=== PATIENT | female | born 1990 | race Caucasian/White ===

== ENCOUNTER 2019-02-20 09:10 | Outpatient (CLI) | payer OTHER, MEDICAID ==
--- NOTE | 2019-02-20 22:19 | Ultrasound Report ---
Reason: TEST POSITIVE Procedure Date: 02/20/2019 Accession Number: [id number] / [id number] Procedure: US - OB First Trimester CPT Code: FULL RESULT: EXAM: FIRST TRIMESTER OBSTETRIC ULTRASOUND (Less than 11 weeks) EXAM DATE: 02/20/2019 09:56 AM. CLINICAL HISTORY: TEST POSITIVE. LMP: Unknown. COMPARISONS: None. TECHNIQUE: Transabdominal and transvaginal ultrasound examination with static image documentation. ASSESSMENT: Gestational Sac: Single intrauterine. Embryo: CRL (crown-rump length) 15.7 mm = 8 weeks 0 days. Cardiac activity: 157 beats per minute. Yolk sac: 3 mm. Amniotic fluid: Not accurately assessed at this gestational age. Early placenta: Not visible at this gestational age. Other: No perigestational fluid collection demonstrated. MATERNAL STRUCTURES: Uterus: Anteverted. Unremarkable. Cervix: Closed. Bilateral ovaries unremarkable aside from a 2.2 cm right ovarian corpus luteal cyst. Free Fluid: None. Other: None. IMPRESSION: 1. Single viable intrauterine at EGA 8 weeks 0 days with JAVIER 10/02/2019 based on crown-rump length. RADIA
== END 2019-02-20 09:11 | disposition home or self-care (01) ==
LOC: DI 09:10
PROVIDERS: ATTEND Obstetrics & Gynecology
DX: Z32.01 Encounter for pregnancy test, result positive (principal)
CPT/HCPCS: 76801

== ENCOUNTER 2019-03-19 11:20 | Outpatient (CLI) | payer OTHER, MEDICAID ==
[2019-03-19 15:27] LABS: MUDS CUTOFF CONCENTRATIONS CUTOFF CONC BELOW:
[2019-03-19 15:42] LABS: BILIRUBIN,URINE NEGATIVE (NEGATIVE); GLUCOSE, URINE (UA) NEGATIVE (NEGATIVE); KETONES,URINE (UA) NEGATIVE (NEGATIVE); LEUKOCYTE ESTERASE, URINE NEGATIVE (NEGATIVE); NITRITE,URINE NEGATIVE (NEGATIVE); OCCULT BLOOD,URINE NEGATIVE (NEGATIVE); PROTEIN,URINE NEGATIVE (NEGATIVE); UROBILINOGEN,URINE 0.2 (NORMAL) E.U./dL (NORMAL)
[2019-03-19 15:43] LABS: CLARITY,URINE HAZY (CLEAR)
[2019-03-19 15:49] LABS: AMPHETAMINE SCREEN,URINE NEGATIVE (NEGATIVE); BENZODIAZEPINES SCREEN, URINE NEGATIVE (NEGATIVE); COCAINE SCREEN URINE NEGATIVE (NEGATIVE); METHADONE SCREEN, URINE NEGATIVE (NEGATIVE); METHAMPHETAMINES SCREEN, URINE NEGATIVE (NEGATIVE); OPIATE SCREEN, URINE NEGATIVE (NEGATIVE); OXYCODONE SCREEN, URINE NEGATIVE (NEGATIVE); PROPOXYPHENE SCREEN, URINE NEGATIVE (NEGATIVE); TRICYCLIC ANTIDEPRESSANT,URINE NEGATIVE (NEGATIVE)
[2019-03-19 15:55] LABS: AMORPHOUS SEDIMENT,UR Moderate /LPF; BACTERIA,URINE None Seen /HPF (None Seen); RBC,URINE None Seen /HPF (0-5); SQUAMOUS EPITHELIAL CELL,UR NONE SEEN (<= Few)
[2019-03-19 20:06] LABS: TRICHOMONAS VAGINALIS DNA NEGATIVE (NEGATIVE)
== END 2019-03-19 23:59 | disposition home or self-care (01) ==
LOC: LAB.R 11:20
PROVIDERS: ATTEND Nurse Practitioner Obstetrics & Gynecology
DX: Z36.89 Encounter for other specified antenatal screening (principal)
CPT/HCPCS: 80306; 81001; 87086; 87491; 87591; 87661

== ENCOUNTER 2019-03-19 11:31 | Outpatient (CLI) | payer OTHER, MEDICAID ==
[2019-03-19 12:11] LABS: BASOPHILS % (AUTO) 0.4 %; EOSINOPHILS # (AUTO) 0.1 10^3/uL (0.0-0.7); EOSINOPHILS % (AUTO) 1.5 %; HGB - HEMOGLOBIN 12.2 g/dL (12.0-16.0); LYMPHOCYTES # (AUTO) 1.2 10^3/uL (1.5-3.5); LYMPHOCYTES % (AUTO) 22.3 %; MEAN CORPUSCULAR HEMOGLOBIN 29.4 pg (27.0-31.0); MEAN CORPUSCULAR HGB CONC 32.3 g/dL (32.0-36.0); MEAN CORPUSCULAR VOLUME 91.1 fL (81.0-99.0); MEAN PLATELET VOLUME 9.5 fL (7.9-10.8); MONOCYTES # (AUTO) 0.4 10^3/uL (0.0-1.0); MONOCYTES % (AUTO) 7.3 %; NEUTROPHILS # (AUTO) 3.7 10^3/uL (1.5-6.6); PLT - PLATELET COUNT 238 10^3/uL (130-450); RED BLOOD COUNT 4.15 10^6/uL (4.20-5.40); RED CELL DISTRIBUTION WIDTH 12.7 % (12.0-15.0); WHITE BLOOD COUNT 5.5 x10^3/uL (4.8-10.8)
[2019-03-20 11:36] LABS: HEPATITIS B SURFACE ANTIGEN NON-REACTIVE (NON-REACTIVE)
[2019-03-20 11:37] LABS: HEPATITIS C ANTIBODY NON-REACTIVE (NON-REACTIVE)
[2019-03-22 17:21] LABS: HIV AG/AB 4TH GEN NON-REACTIVE (NON-REACTIVE)
== END 2019-03-19 11:32 | disposition home or self-care (01) ==
LOC: LAB 11:31
PROVIDERS: ATTEND Nurse Practitioner Obstetrics & Gynecology
DX: Z36.89 Encounter for other specified antenatal screening (principal)
CPT/HCPCS: 36415; 80306; 81001; 81599; 85025; 86592; 86762; 86803; 86850; 86900; 86901; 87086; 87340; 87389; 87491; 87591; 87661

== ENCOUNTER 2019-05-24 06:50 | Outpatient (CLI) | payer OTHER, MEDICAID ==
--- NOTE | 2019-05-24 15:33 | Ultrasound Report ---
Reason: ENCOUNTER FOR OTHER SPECIFIED SCREENING Procedure Date: 05/24/2019 Accession Number: [id number] / [id number] Procedure: US - OB Detailed Eval CPT Code: FULL RESULT: EXAM: COMPLETE OBSTETRICAL ULTRASOUND EXAM DATE: 05/24/2019 09:16 AM. CLINICAL HISTORY: anatomic survey. COMPARISON: First trimester ultrasound 02/20/2019. TECHNIQUE: Real-time sonographic evaluation of the fetus performed by the blow machine tender starch spraying. Multiple installation service representative static images were saved for review. DATING: Established EGA 21 weeks 2 days with JAVIER 10/02/2019 based on working due date. EGA 21 weeks 0 days with JAVIER 10/04/2019 based on the current ultrasound. GENERAL EVALUATION Carlos . Cardiac activity: 136 bpm. movement: Visualized. Presentation: Cephalic. Placenta: Posterior position. No evidence for previa. Umbilical cord: 3 vessel cord. Central placental cord origin. Amniotic fluid: Subjectively normal. MVP 5.7 cm and JESSIE 16.0 cm. BIOMETRY Bi-Parietal Diameter (BPD): 4.9 cm, 20 weeks 5 days Head Circumference (HC): 18.5 cm, 20 weeks 6 days Abdominal Circumference (AC): 16.4 cm, 21 weeks 3 days Femur Length (FL): 3.6 cm, 21 weeks 4 days Estimated Weight: 423 g, 52nd percentile for 21 weeks 2 days. ANATOMY The intracranial structures, profile, face/nose/lips, spine, 4 chamber heart and outflow tracts, stomach, abdominal wall and cord insertion, diaphragm, bladder, and extremities were visualized and demonstrate no abnormality. Both kidneys demonstrate prominent renal pelvises measuring up to 0.5 cm each, pyelectasis. MATERNAL STRUCTURES Uterus: Unremarkable. Cervix: Long and closed. Transabdominal length 4.0 cm. Right ovary/adnexa: Unremarkable. Left ovary/adnexa: Unremarkable. Free fluid: None. IMPRESSION: 1. Carlos live intrauterine with gestational age 21 weeks 2 days based on working due date. 2. Estimated weight is within expected limits for assigned dating. 3. Mild bilateral renal pyelectasis. The remaining anatomy survey is normal. Therefore, one soft marker for aneuploidy is detected. Recommend correlation with maternal age, ethnicity, and aneuploidy risk assessment results such as serum screening or cell free DNA testing to help guide further management. RADIA
== END 2019-05-24 06:51 | disposition home or self-care (01) ==
LOC: DI 06:50
PROVIDERS: ATTEND Nurse Practitioner Obstetrics & Gynecology
DX: Z36.89 Encounter for other specified antenatal screening (principal)
CPT/HCPCS: 76811

== ENCOUNTER 2019-07-02 08:34 | Outpatient (CLI) | payer OTHER, MEDICAID ==
--- NOTE | 2019-07-02 10:49 | Ultrasound Report ---
Reason: F/U TO FAS Procedure Date: 07/02/2019 Accession Number: [id number] / [id number] Procedure: US - OB F/U or Repeat CPT Code: FULL RESULT: EXAM: FOLLOW-UP OBSTETRICAL ULTRASOUND EXAM DATE: 07/02/2019 09:38 AM. CLINICAL HISTORY: Follow-up anatomy evaluation. COMPARISON: Obstetrical ultrasound 05/24/2019. TECHNIQUE: Real-time sonographic evaluation of the fetus performed by the executive sales assistant. Additional transvaginal imaging to more accurately evaluate cervical length/placental position/etc. Multiple insurance service representative static images were saved for review. DATING: Established EGA 26 weeks 6 days with JAVIER 10/02/2019 based on prior ultrasound. EGA 26 weeks 6 days with JAVIER 10/02/2019 based on physician provided. EGA 27 weeks 1 day with JAVIER 09/30/2019 based on the current ultrasound. GENERAL EVALUATION Carlos . Cardiac activity: 132 bpm. movement: Visualized. Presentation: Cephalic. Placenta: Posterior position. Amniotic fluid: Normal. JESSIE 21.0 cm. MVP 5.7 cm. BIOMETRY Bi-Parietal Diameter (BPD): 6.69 cm, 27 weeks 0 days Head Circumference (HC): 24.6 cm, 26 weeks 5 days Abdominal Circumference (AC): 22.6 cm, 27 weeks 0 days 5.24 Femur Length (FL): 5.24 cm, 27 weeks 6 days. Estimated Weight: 1055 g, 56.4 percentile for 26 weeks 4 days. ANATOMY Limited anatomic evaluation restricted to kidneys. There is mental change in the minimal bilateral pelviectasis. The right and left renal pelvic transverse diameter are both 5 mm which are unchanged. MATERNAL STRUCTURES Cervical length 4.7 cm. IMPRESSION: 1. Carlos live intrauterine with gestational age 27 weeks 1 day based on current ultrasound. 2. Estimated weight is within expected limits for assigned dating. 3. Normal interval growth compared to date of prior biometry. 4. There has been no change in the minimal bilateral renal pelvic dilatation of the kidneys compared to prior examination. Consider third trimester follow-up. RADIA
== END 2019-07-02 08:35 | disposition home or self-care (01) ==
LOC: DI 08:34
PROVIDERS: ATTEND Nurse Practitioner Obstetrics & Gynecology
DX: Z34.90 Encounter for supervision of normal pregnancy, unspecified, unspecified trimester (principal)
CPT/HCPCS: 76816

== ENCOUNTER 2019-07-04 08:09 | Emergency (ER) | payer OTHER, MEDICAID ==
[2019-07-04 08:17] VITALS: BP 122/71
[2019-07-04] MEDS ORDERED: ACETAMINOPHEN 325 MG TABLET PO STA (08:23)
--- NOTE | 2019-07-04 08:27 | ED Physician Documentation ---
History of Present Illness - Stated complaint Stated Complaint: BACK PX - Chief complaint Chief Complaint: Back Pain - History obtained from History obtained from: Patient - History of Present Illness Timing: Today Pain level max: 4 Pain level now: 3 - Additonal information Additional information: 29-year-old female, approximately 28 weeks . She states that she helped somewhat up off the ground yesterday at work. States that she felt her back gradually worsened and tightened throughout the day. Worse today. Has not taken anything. Worse with movement. She is also having lower pelvic pain and cramping. No vaginal bleeding. No discharge. Better with rest. Review of Systems Constitutional: denies: Fever, Chills Throat: denies: Sore throat Cardiac: denies: Chest pain / pressure Respiratory: denies: Cough GI: denies: Vomiting, Diarrhea : reports: Now EGA. denies: Dysuria, Frequency, Hesitancy, Incontinent, Hematuria Skin: denies: Rash Musculoskeletal: denies: Neck pain Neurologic: denies: Headache PD PAST MEDICAL HISTORY - Past Medical History Cardiovascular: None Respiratory: Asthma, Pneumonia Endocrine/Autoimmune: None GI: None RAC SPECIALIST: None : None HEENT: None Psych: None Musculoskeletal: None Derm: None - Past Surgical History Past Surgical History: No - Present Medications Home Medications: Ambulatory Orders Medication Instructions Recorded Confirmed Albuterol Sulfate [Albuterol 2 puffs IH Q4HR PRN #1 hfa.aer.ad 03/22/15 03/18/16 Sulfate Hfa] Nebulizer and Compressor [Comp-Air 1 each MC Q4HR PRN #1 each 03/22/15 03/18/16 Elite Comp Nebulizer] Ondansetron Odt [Zofran] 4 mg TL Q6H PRN #10 tablet 03/18/16 - Allergies Allergies/Adverse Reactions: Allergies Allergy/AdvReac Type Severity Reaction Status Date / Time No Known Drug Allergies Allergy Verified 07/04/19 08:17 - Social History Does the pt smoke?: No Smoking Status: Former smoker Does the pt drink ETOH?: Yes Does the pt have substance abuse?: No - Immunizations Immunizations are current?: Yes - POLST Patient has POLST: No PD ED PE NORMAL - Vitals Vital signs reviewed: Yes - General General: Alert and oriented X 3, No acute distress, Well developed/nourished - HEENT HEENT: PERRL, Moist mucous membranes - Neck Neck: Supple, no meningeal sign - Cardiac Cardiac: RRR, Strong equal pulses - Respiratory Respiratory: No respiratory distress, Clear bilaterally - Abdomen Abdomen: Soft, Non tender, Non distended - Female Female : Pt declined - Back Back: No spinal TTP, Other (No midline tender to palpation. Paraspinal spasm mild low lumbar.) - Derm Derm: Warm and dry - Extremities Extremities: No edema, No calf tenderness / cord - Neuro Neuro: Alert and oriented X 3 - Psych Psych: Normal mood, Normal affect Results - Vitals Vitals: Vital Signs - 24 hr 07/04/19 08:15 Temperature 98.6 C H Heart Rate 66 Respiratory 22 Rate Blood Pressure 122/71 O2 Saturation 98 Oxygen O2 Source Room air - Labs Labs: Laboratory Tests 07/04/19 08:36 Urine Color YELLOW Urine Clarity CLEAR Urine pH 6.5 Ur Specific [place] 1.010 Urine Protein NEGATIVE Urine Glucose (UA) NEGATIVE Urine Ketones NEGATIVE Urine Occult Blood NEGATIVE Urine Nitrite NEGATIVE Urine Bilirubin NEGATIVE Urine Urobilinogen 0.2 (NORMAL) Ur Leukocyte Esterase NEGATIVE Ur Microscopic Review NOT INDICATED Urine Culture Comments NOT INDICATED PD MEDICAL DECISION MAKING - ED course Complexity details: reviewed results, re-evaluated patient, considered differential, d/w patient ED course: OB nurses were called at 05 21 to come and perform monitoring and labor check. Tylenol given for pain. Urinalysis ordered. OB came and evaluated the patient. Normal nonstress test per OB. No evidence of contractions or labor. Normal heart rate. Feels better after Tylenol. Appears to be low back strain. Negative urinalysis. Patient counseled regarding signs and symptoms for which I believe and urgent re-evaluation would be necessary. Patient with good understanding of and agreement to plan and is comfortable going home at this time This document was made in part using voice recognition software. While efforts are made to proofread this document, sound alike and grammatical errors may occur. Departure - Departure Disposition: 01 Home, Self Care Clinical Impression: Low back strain Qualifiers: Encounter type: initial encounter Qualified Code(s): S39.012A - Strain of muscle, fascia and tendon of lower back, initial encounter Condition: Good Instructions: ED Low Back Pain Injury Follow-Up: your,doctor in 3 days [Other] Comments: you can use tylenol for pain. Return if you worsen. Discharge Date/Time: 07/04/19 09:08
[2019-07-04 08:41] LABS: BILIRUBIN,URINE NEGATIVE (NEGATIVE); GLUCOSE, URINE (UA) NEGATIVE (NEGATIVE); KETONES,URINE (UA) NEGATIVE (NEGATIVE); LEUKOCYTE ESTERASE, URINE NEGATIVE (NEGATIVE); NITRITE,URINE NEGATIVE (NEGATIVE); OCCULT BLOOD,URINE NEGATIVE (NEGATIVE); PH,URINE 6.5 PH (5.0-7.5); PROTEIN,URINE NEGATIVE (NEGATIVE); UROBILINOGEN,URINE 0.2 (NORMAL) E.U./dL (NORMAL)
[2019-07-04 08:42] LABS: CLARITY,URINE CLEAR (CLEAR)
== END 2019-07-04 09:08 | disposition home or self-care (01) ==
LOC: ED 08:09
DX: O99.89 Other specified diseases and conditions complicating pregnancy, childbirth and the puerperium (principal); S39.012A Strain of muscle, fascia and tendon of lower back, initial encounter; X58.XXXA Exposure to other specified factors, initial encounter; Z87.891 Personal history of nicotine dependence; Z3A.28 28 weeks gestation of pregnancy
CPT/HCPCS: 81003; 99283; 99284; A9270; 81001; 87086

== ENCOUNTER 2019-07-16 10:11 | Outpatient (CLI) | payer OTHER, MEDICAID ==
[2019-07-16 11:24] LABS: HGB - HEMOGLOBIN 11.2 g/dL (12.0-16.0); MEAN CORPUSCULAR HEMOGLOBIN 30.1 pg (27.0-31.0); MEAN CORPUSCULAR HGB CONC 32.7 g/dL (32.0-36.0); MEAN CORPUSCULAR VOLUME 92.2 fL (81.0-99.0); MEAN PLATELET VOLUME 8.6 fL (7.9-10.8); RED BLOOD COUNT 3.72 10^6/uL (4.20-5.40); RED CELL DISTRIBUTION WIDTH 12.8 % (12.0-15.0); WHITE BLOOD COUNT 6.9 x10^3/uL (4.8-10.8)
== END 2019-07-16 10:12 | disposition home or self-care (01) ==
LOC: LAB 10:11
PROVIDERS: ATTEND Obstetrics & Gynecology
DX: Z34.90 Encounter for supervision of normal pregnancy, unspecified, unspecified trimester (principal)
CPT/HCPCS: 36415; 82950; 85027; 86850

== ENCOUNTER 2019-08-06 10:46 | Outpatient (CLI) | payer OTHER, MEDICAID ==
[2019-08-06 11:07] LABS: HGB - HEMOGLOBIN 10.7 g/dL (12.0-16.0); MEAN CORPUSCULAR HEMOGLOBIN 29.4 pg (27.0-31.0); MEAN CORPUSCULAR HGB CONC 32.9 g/dL (32.0-36.0); MEAN CORPUSCULAR VOLUME 89.3 fL (81.0-99.0); MEAN PLATELET VOLUME 8.9 fL (7.9-10.8); RED BLOOD COUNT 3.64 10^6/uL (4.20-5.40); RED CELL DISTRIBUTION WIDTH 12.6 % (12.0-15.0)
== END 2019-08-06 10:47 | disposition home or self-care (01) ==
LOC: LAB 10:46
PROVIDERS: ATTEND Nurse Practitioner Obstetrics & Gynecology
DX: O99.019 Anemia complicating pregnancy, unspecified trimester (principal); Z3A.00 Weeks of gestation of pregnancy not specified
CPT/HCPCS: 36415; 85027

== ENCOUNTER 2019-08-27 12:08 | Outpatient (CLI) | payer OTHER, MEDICAID ==
[2019-08-27 12:21] LABS: HGB - HEMOGLOBIN 11.2 g/dL (12.0-16.0); MEAN CORPUSCULAR HEMOGLOBIN 28.9 pg (27.0-31.0); MEAN CORPUSCULAR HGB CONC 32.3 g/dL (32.0-36.0); MEAN CORPUSCULAR VOLUME 89.7 fL (81.0-99.0); MEAN PLATELET VOLUME 8.9 fL (7.9-10.8); RED BLOOD COUNT 3.87 10^6/uL (4.20-5.40); RED CELL DISTRIBUTION WIDTH 13.8 % (12.0-15.0)
[2019-08-27 12:44] LABS: % IRON SATURATION 12 % (20-50); IRON 74 ug/dL (28-170); TOTAL IRON BINDING CAPACITY 638 ug/dL (250-450); TRANSFERRIN 456 mg/dL (192-382)
== END 2019-08-27 12:09 | disposition home or self-care (01) ==
LOC: LAB 12:08
PROVIDERS: ATTEND Obstetrics & Gynecology
DX: O99.019 Anemia complicating pregnancy, unspecified trimester (principal); Z3A.00 Weeks of gestation of pregnancy not specified
CPT/HCPCS: 36415; 83540; 84466; 85027

== ENCOUNTER 2019-09-03 07:00 | Outpatient (CLI) | payer OTHER, MEDICAID ==
[2019-09-03 18:34] LABS: TRICHOMONAS VAGINALIS DNA NEGATIVE (NEGATIVE)
== END 2019-09-03 23:59 | disposition home or self-care (01) ==
LOC: LAB.R 07:00
PROVIDERS: ATTEND Nurse Practitioner Obstetrics & Gynecology
DX: Z36.85 Encounter for antenatal screening for Streptococcus B (principal)
CPT/HCPCS: 87491; 87591; 87661; 87797

== ENCOUNTER 2019-10-01 14:43 | Inpatient (IN) | payer OTHER, MEDICAID ==
[2019-10-01 16:00] LABS: BASOPHILS % (AUTO) 0.3 %; EOSINOPHILS % (AUTO) 0.6 %; HGB - HEMOGLOBIN 10.8 g/dL (12.0-16.0); LYMPHOCYTES # (AUTO) 1.2 10^3/uL (1.5-3.5); LYMPHOCYTES % (AUTO) 18.8 %; MEAN CORPUSCULAR HEMOGLOBIN 28.1 pg (27.0-31.0); MEAN CORPUSCULAR HGB CONC 32.5 g/dL (32.0-36.0); MEAN CORPUSCULAR VOLUME 86.5 fL (81.0-99.0); MEAN PLATELET VOLUME 9.7 fL (7.9-10.8); MONOCYTES # (AUTO) 0.5 10^3/uL (0.0-1.0); MONOCYTES % (AUTO) 8.5 %; NEUTROPHILS # (AUTO) 4.4 10^3/uL (1.5-6.6); PLT - PLATELET COUNT 263 10^3/uL (130-450); RED BLOOD COUNT 3.84 10^6/uL (4.20-5.40); RED CELL DISTRIBUTION WIDTH 14.6 % (12.0-15.0); WHITE BLOOD COUNT 6.2 x10^3/uL (4.8-10.8)
[2019-10-01] MEDS ORDERED: AMPICILLIN 2 GM in SODIUM CHLORIDE 0.9% MINIBAG 100 ML IV ONE ×2 (16:17→16:50)
[2019-10-01] MEDS ORDERED: CALCIUM CARBONATE CHEW 500 MG TABLET PO PRN (16:20)
--- NOTE | 2019-10-01 16:28 | HISTORY & PHYSICAL EXAMINATION ---
Admit History - Visit Reason Visit Reason: Other (29yo O+ GBS+ at 39 6/7 weeks by LMP c/w first trimester scan admitted for IOL secondary to exam of 5cm in clinic with h/o fast labor, GBS+. No complaints. No n/v/f/c or dysuria. No headaches, visual changes. No loss of fluid. +bloody show yesterday. Normal activity.) - : 3 Parity: 1 Premature: 0 Ectopic: 0 : 1 Care: positive: [facility] Risk/History: positive: None, Other (H/O precipitous delivery SAB requiring D&E ~8 weeks) Complications This : positive: Other (Iron deficiency, H/O mild asthma, no inhaler>1 year) Smoking Status: Never smoker - Mother's Labs Mother's Blood Type: positive: A Mother's RH: positive: Positive GBS: positive: Group B Strep Positive Rubella Status: positive: Non-immune (HIV/VDRL/HepB/C neg GC/chlam neg Glucola 139 Iron/TIBC 74/638) Meds/Allgy - Home Medications Home Medications: Ambulatory Orders Medication Instructions Recorded Confirmed Calcium Carbonate [Tums (Calcium 500 mg PO BID 10/01/19 10/01/19 Carbonate 500mg)] Ferrous Gluconate [Iron] 240 mg PO DAILY 10/01/19 10/01/19 Pnv No.95/Ferrous Fum/Folic AC 1 tab PO DAILY 10/01/19 10/01/19 [ Formula Tablet] - Allergies Allergies/Adverse Reactions: Allergies Allergy/AdvReac Type Severity Reaction Status Date / Time No Known Drug Allergies Allergy Verified 08/13/19 12:01 Review of Systems - All Other Systems All Other Systems: reports: Other (As noted. Otherwise negative) Physical - Abdominal Exam Contraction Intensity: positive: Other (Rare mild contraction) Uterine Resting Tone: positive: Soft - Monitoring Strip Review: positive: Category I - Presentation Presentation: positive: Vertex (by scan) - Vaginal Exam Membranes: positive: Membranes intact Dilation (in cm): 5cm per clinic exam - Speculum Exam Speculum Exam Performed: positive: No Plan for Labor - Plan For Labor I expect patient to be DC'd or transferred within 96 hours.: Yes Plan for Labor: 29yo at 39 6/7 weeks admitted for IOL secondary to +GBS, widely dilated cervix and h/o precipitous labor. Uncomplicated h/o. Iron deficiency treated w IV iron. Plan start abx, start pitocin with second dose to insure treatment adequacy. Planning nexplanon Considering labor epidural. Expect Exam - Exam General: Alert, Oriented x3 HEENT: Atraumatic Lungs: Clear to auscultation Cardiovascular: Regular rate, No murmurs Abdomen: Normal bowel sounds, Soft, No tenderness, No masses, Other (Gravid, S=D) Skin: No rashes Psych/Mental Status: Mental status NL
[2019-10-01] MEDS ORDERED: OXYTOCIN/DEXTROSE 5 % 30 UNIT/500 ML BAG IV PRN (16:42)
[2019-10-01] MEDS ORDERED: LACTATED RINGERS 1,000 ML IV ONE (16:51)
[2019-10-01] MEDS: LACTATED RINGERS 1,000 ML IV SCH (16:58)
[2019-10-01] MEDS: SODIUM CHLORIDE FLUSH 0.9% 10 ML SYRINGE IVP PRN ×2 (16:58→20:52)
[2019-10-01] MEDS ORDERED: OXYTOCIN/DEXTROSE 5 % 30 UNIT/500 ML BAG IV SCH (17:00)
[2019-10-01] MEDS: AMPICILLIN 1 GM in SODIUM CHLORIDE 0.9% MINIBAG 100 ML IV SCH (20:48)
--- NOTE | 2019-10-01 22:13 | PROVIDER PROGRESS NOTE ---
Subjective - Prog Note Date Prog Note Date: 10/01/19 Prog Note Time: 22:12 - Subjective Subjective: Comfortable. VSS afeb Category 1 tracing Few mild contractions with pitocin at 2 Continue IOL Objective - Vital Signs/Intake & Output Vital Signs: Vital Signs x48h Temp Pulse Resp BP Pulse Ox 10/01/19 19:48 79 121/56 L 10/01/19 19:00 208.9 F H 18 99 Intake & Output: Intake & Output 09/28/19 09/29/19 09/30/19 10/01/19 23:59 23:59 23:59 23:59 Intake Total 100 Balance 100 - Lab Results Fish Bones: 10/01/19 15:35 Other Labs: Lab Results x24hrs 10/01/19 10/01/19 Range/Units 15:35 15:35 WBC 6.2 (4.8-10.8) x10^3/uL RBC 3.84 L (4.20-5.40) 10^6/uL Hgb 10.8 L (12.0-16.0) g/dL Hct 33.2 L (37.0-47.0) % MCV 86.5 (81.0-99.0) fL MCH 28.1 (27.0-31.0) pg MCHC 32.5 (32.0-36.0) g/dL RDW 14.6 (12.0-15.0) % Plt Count 263 (130-450) 10^3/uL MPV 9.7 (7.9-10.8) fL Neut # (Auto) 4.4 (1.5-6.6) 10^3/uL Lymph # (Auto) 1.2 L (1.5-3.5) 10^3/uL [place] # (Auto) 0.5 (0.0-1.0) 10^3/uL Eos # (Auto) 0.0 (0.0-0.7) 10^3/uL Baso # (Auto) 0.0 (0.0-0.1) 10^3/uL Absolute Nucleated RBC 0.00 x10^3/uL Nucleated RBC % 0.0 /100WBC Blood Type O POSITIVE Antibody Screen NEGATIVE
--- NOTE | 2019-10-02 00:33 | PROVIDER PROGRESS NOTE ---
Subjective - Prog Note Date Prog Note Date: 10/02/19 Prog Note Time: 00:31 - Subjective Subjective: Very uncomfortable. ?SROM clear. VSS afeb Pit at 5, contractions q2-4 Category 1 Declines pain meds/epidural Continue IOL Expect Objective - Vital Signs/Intake & Output Vital Signs: Vital Signs x48h Temp Pulse Resp BP Pulse Ox 10/01/19 19:48 79 121/56 L 10/01/19 19:00 208.9 F H 18 99 Intake & Output: Intake & Output 09/29/19 09/30/19 10/01/19 10/02/19 23:59 23:59 23:59 23:59 Intake Total 100 Output Total 400 Balance -300 - Lab Results Fish Bones: 10/01/19 15:35 Other Labs: Lab Results x24hrs 10/01/19 10/01/19 Range/Units 15:35 15:35 WBC 6.2 (4.8-10.8) x10^3/uL RBC 3.84 L (4.20-5.40) 10^6/uL Hgb 10.8 L (12.0-16.0) g/dL Hct 33.2 L (37.0-47.0) % MCV 86.5 (81.0-99.0) fL MCH 28.1 (27.0-31.0) pg MCHC 32.5 (32.0-36.0) g/dL RDW 14.6 (12.0-15.0) % Plt Count 263 (130-450) 10^3/uL MPV 9.7 (7.9-10.8) fL Neut # (Auto) 4.4 (1.5-6.6) 10^3/uL Lymph # (Auto) 1.2 L (1.5-3.5) 10^3/uL [place] # (Auto) 0.5 (0.0-1.0) 10^3/uL Eos # (Auto) 0.0 (0.0-0.7) 10^3/uL Baso # (Auto) 0.0 (0.0-0.1) 10^3/uL Absolute Nucleated RBC 0.00 x10^3/uL Nucleated RBC % 0.0 /100WBC Blood Type O POSITIVE Antibody Screen NEGATIVE
[2019-10-02] MEDS: AMPICILLIN 1 GM in SODIUM CHLORIDE 0.9% MINIBAG 100 ML IV SCH ×2 (01:04→07:38)
[2019-10-02] MEDS ORDERED: ROPIVACAINE 0.2% 200 MG/100 ML BAG EP ONE (01:28)
[2019-10-02] MEDS: LACTATED RINGERS 1,000 ML IV SCH (02:09)
[2019-10-02] MEDS ORDERED: ROPIVACAINE 0.2% 200 MG/100 ML BAG EP PRN (02:25)
[2019-10-02] MEDS ORDERED: ePHEDrine 50 MG/ML VIAL IVP PRN (02:25)
[2019-10-02] MEDS ORDERED: METOCLOPRAMIDE 10 MG/2 ML VIAL IVP PRN (02:25)
[2019-10-02] MEDS ORDERED: NALBUPHINE 10 MG/ML AMP IVP PRN (02:25)
[2019-10-02] MEDS ORDERED: NALOXONE 0.4 MG/ML VIAL IVP PRN (02:25)
[2019-10-02] MEDS ORDERED: LACTATED RINGERS 500 ML IV ONE (02:25)
[2019-10-02] MEDS ORDERED: ONDANSETRON 4 MG/2 ML VIAL IVP PRN (02:25)
[2019-10-02] MEDS ORDERED: diphenhydrAMINE INJ 50 MG/ML VIAL IVP PRN (02:25)
--- NOTE | 2019-10-02 02:29 | ANESTHESIA ---
Pre-Anesthesia VS, & Labs - Diagnosis active labor - Procedure labor epidural Vital Signs: Temp Pulse Resp BP Pulse Ox 98.3 C H 79 18 121/56 L 99 10/01/19 19:00 10/01/19 19:48 10/01/19 19:00 10/01/19 19:48 10/01/19 19:00 Height 4 ft 10 in Weight (kg) 75.75 kg Body Mass Index 32.3 - NPO Other (clears) - Is Patient ?: Yes - Lab Results Current Lab Results: Laboratory Tests 10/01/19 15:35: WBC 6.2, RBC 3.84 L, Hgb 10.8 L, Hct 33.2 L, MCV 86.5, MCH 28.1, MCHC 32.5, RDW 14.6, Plt Count 263, MPV 9.7, Neut # (Auto) 4.4, Lymph # (Auto) 1.2 L, [place] # (Auto) 0.5, Eos # (Auto) 0.0, Baso # (Auto) 0.0, Absolute Nucleated RBC 0.00, Nucleated RBC % 0.0 10/01/19 15:35: Blood Type O POSITIVE, Antibody Screen NEGATIVE Fish Bones: 10/01/19 15:35 Home Medications and Allergies Home Medications: Ambulatory Orders Calcium Carbonate [Tums (Calcium Carbonate 500mg)] 500 mg PO BID 10/01/19 Ferrous Gluconate [Iron] 240 mg PO DAILY 10/01/19 Pnv No.95/Ferrous Fum/Folic AC [ Formula Tablet] 1 tab PO DAILY 10/01/19 Active Medications Calcium Carbonate/Glycine (Tums) 500 mg PO BID PRN PRN Reason: INDIGESTION Last Admin: 10/01/19 16:56 Dose: 500 mg Diphenhydramine HCl (Benadryl Inj) 12.5 - 25 mg IVP Q6HR PRN PRN Reason: ITCHING Ephedrine Sulfate () 5 mg IVP Q5M PRN PRN Reason: For SBP<100;give until SBP>100 Ampicillin Sodium 1 gm/ Sodium (Chloride) 100 mls @ 200 mls/hr IV Q4H [facility] Last Infusion: 10/02/19 01:35 Dose: Infused Lactated Ringer's (Lr) 1,000 mls @ 150 mls/hr IV .Q6H40M [facility] Last Admin: 10/02/19 02:09 Dose: 150 mls/hr OXYTOCIN/DEXTROSE 5 % (Pitocin/Dextrose 5%) 30 unit in 500 mls @ 2 mls/hr IV TITR NILSON; Protocol Last Admin: 10/01/19 21:26 Dose: 2 milliunit/min, 2 mls/hr OXYTOCIN/DEXTROSE 5 % (Pitocin/Dextrose 5%) 30 unit in 500 mls @ 999 mls/hr IV PRN PRN; Protocol PRN Reason: POST- HEMORR PREVENTION Lactated Ringer's (Lr) 500 mls @ 999 mls/hr IV ONCE ONE Stop: 10/02/19 02:55 Ropivacaine (Naropin 0.2%) 200 mg in 100 mls @ 0 mls/hr EP PRN PRN; Protocol PRN Reason: PAIN Metoclopramide HCl (Reglan Inj) 10 mg IVP Q6HR PRN PRN Reason: Nausea / Vomiting Nalbuphine HCl (Nubain) 2.5 - 5 mg IVP Q4H PRN PRN Reason: ITCHING Naloxone HCl (Narcan) 0.1 mg IVP Q2M PRN PRN Reason: RR<8 Ondansetron HCl (Zofran Inj) 4 mg IVP Q6HR PRN PRN Reason: Nausea / Vomiting Sodium Chloride (Normal Saline Flush 0.9%) 10 ml IVP PRN PRN PRN Reason: NEEDED PER PROVIDER ORDERS Last Admin: 10/01/19 20:52 Dose: 10 ml Calcium Carbonate [Tums (Calcium Carbonate 500mg)] 500 mg PO BID 10/01/19 Ferrous Gluconate [Iron] 240 mg PO DAILY 10/01/19 Pnv No.95/Ferrous Fum/Folic AC [ Formula Tablet] 1 tab PO DAILY 10/01/19 Allergies/Adverse Reactions: Allergies Allergy/AdvReac Type Severity Reaction Status Date / Time No Known Drug Allergies Allergy Verified 08/13/19 12:01 Anes History & Medical History - Anesthetic History Anesthesia Complications: reports: No previous complications - Medical History Cardiovascular: reports: None Pulmonary: reports: Asthma, Pneumonia Gastrointestinal: reports: None Urinary: reports: None Musculoskeletal: reports: None Endocrine/Autoimmune: reports: None Skin: reports: None Smoking Status: Never smoker - Obstetrical History : 3 Parity: 1 Events: positive: None, Other (H/O precipitous delivery SAB requiring D&E ~8 weeks) Complications: positive: Other (Iron deficiency, H/O mild asthma, no inhaler>1 year) Exam General: Alert Dental: WNL Mouth Opening: Greater than 4 Fingerbreadths Mallampati classification: II Respiratory: Normal breath sounds Cardiovascular: Regular rate Mental/Cognitive Status: Alert/Oriented X3 Plan Anesthesia Type: Epidural Consent for Procedure(s) Verified and Reviewed: Yes Code Status: Attempt Resuscitation ASA classification: 2-Mild systemic disease Is this case an emergency?: No
--- NOTE | 2019-10-02 03:37 | PROVIDER PROGRESS NOTE ---
Subjective - Prog Note Date Prog Note Date: 10/02/19 Prog Note Time: 03:36 - Subjective Subjective: Comfortable with epidural VSS afeb Cat 1 Exam per RN fully +2 Will start pushing Objective - Vital Signs/Intake & Output Vital Signs: Vital Signs x48h Pulse BP 10/01/19 19:48 79 121/56 L Intake & Output: Intake & Output 09/29/19 09/30/19 10/01/19 10/02/19 23:59 23:59 23:59 23:59 Intake Total 1100 100 Output Total 400 Balance 700 100 - Lab Results Fish Bones: 10/01/19 15:35 Other Labs: Lab Results x24hrs 10/01/19 10/01/19 Range/Units 15:35 15:35 WBC 6.2 (4.8-10.8) x10^3/uL RBC 3.84 L (4.20-5.40) 10^6/uL Hgb 10.8 L (12.0-16.0) g/dL Hct 33.2 L (37.0-47.0) % MCV 86.5 (81.0-99.0) fL MCH 28.1 (27.0-31.0) pg MCHC 32.5 (32.0-36.0) g/dL RDW 14.6 (12.0-15.0) % Plt Count 263 (130-450) 10^3/uL MPV 9.7 (7.9-10.8) fL Neut # (Auto) 4.4 (1.5-6.6) 10^3/uL Lymph # (Auto) 1.2 L (1.5-3.5) 10^3/uL [place] # (Auto) 0.5 (0.0-1.0) 10^3/uL Eos # (Auto) 0.0 (0.0-0.7) 10^3/uL Baso # (Auto) 0.0 (0.0-0.1) 10^3/uL Absolute Nucleated RBC 0.00 x10^3/uL Nucleated RBC % 0.0 /100WBC Blood Type O POSITIVE Antibody Screen NEGATIVE
[2019-10-02] MEDS ORDERED: miSOPROStoL 100 MCG TABLET ONE (04:49)
[2019-10-02] MEDS ORDERED: METHYLERGONOVINE 0.2 MG/ML AMP ONE (05:00)
[2019-10-02] MEDS ORDERED: TRANEXAMIC ACID 1,000 MG/10 ML VIAL ONE (05:09)
[2019-10-02] MEDS ORDERED: miSOPROStoL 200 MCG TABLET PR ONE (05:35)
[2019-10-02] MEDS ORDERED: METHYLERGONOVINE 0.2 MG/ML AMP IM ONE (05:35)
[2019-10-02] MEDS ORDERED: HYDROCORTISONE 1% CREAM 28 GM TUBE PR PRN (05:36)
[2019-10-02] MEDS ORDERED: WITCH HAZEL/GLYCERIN 1 PAD TOP PRN (05:36)
[2019-10-02] MEDS ORDERED: HYDROcod/ACETAM 5/325 MG TABLET PO PRN (05:36)
--- NOTE | 2019-10-02 05:42 | DELIVERY NOTE ---
Delivery Note - Labor Labor: positive: Induced by oxytocin - Delivery Method Delivery Method: positive: Spontaneous vaginal delivery ( of 3806gm female apgars 9/9 at 04:24. Spontaneous, vigorous cry.) - Presentation Presentation: positive: Vertex, OA - occiput anterior - Nuchal Cord Nuchal Cord: positive: None - Anesthetic Anesthetic Type: - Amniotic Fluid Description Amniotic Fluid Description: positive: Clear - Episiotomy Type Episiotomy Type: positive: None - Laceration Laceration: positive: Periurethral - Suture Suture Type: positive: Vicryl Suture Size: positive: 4-0 (Intact cervix, vagina, perineum, rectum) - Delivery Outcome Delivery Outcome: positive: Livebirth - : positive: Placed in direct skin contact with mother, Suctioned, Warmed, [place] used [place] sex: positive: Female - Cord Cord: positive: 3 vessels - Placenta Placenta: positive: Spontaneous, Partial (Placenta delivered at 04:42 with traction. Initial inspection revealed intact disc, however, cavity manually explored secondary to continued bleeding with recovery of several fragments. Rough uterine surface. Treated with pitocin, misoprostol, methergine and TXA)
[2019-10-02] MEDS ORDERED: LACTATED RINGERS 1,000 ML IV SCH (06:00)
--- NOTE | 2019-10-02 06:05 | PROVIDER PROGRESS NOTE ---
Subjective - Prog Note Date Prog Note Date: 10/02/19 Prog Note Time: 05:57 - Subjective Subjective: Shakey but comfortable VSS afeb Fundus firm below umbilicus Minimal lochia CBC ordered Kerns placed, urine moderately concentrated; will give fluid bolus. Continue close observation Objective - Vital Signs/Intake & Output Intake & Output: Intake & Output 09/29/19 09/30/19 10/01/19 10/02/19 23:59 23:59 23:59 23:59 Intake Total 1100 100 Output Total 400 Balance 700 100 - Lab Results Fish Bones: 10/01/19 15:35 Other Labs: Lab Results x24hrs 10/01/19 10/01/19 Range/Units 15:35 15:35 WBC 6.2 (4.8-10.8) x10^3/uL RBC 3.84 L (4.20-5.40) 10^6/uL Hgb 10.8 L (12.0-16.0) g/dL Hct 33.2 L (37.0-47.0) % MCV 86.5 (81.0-99.0) fL MCH 28.1 (27.0-31.0) pg MCHC 32.5 (32.0-36.0) g/dL RDW 14.6 (12.0-15.0) % Plt Count 263 (130-450) 10^3/uL MPV 9.7 (7.9-10.8) fL Neut # (Auto) 4.4 (1.5-6.6) 10^3/uL Lymph # (Auto) 1.2 L (1.5-3.5) 10^3/uL [place] # (Auto) 0.5 (0.0-1.0) 10^3/uL Eos # (Auto) 0.0 (0.0-0.7) 10^3/uL Baso # (Auto) 0.0 (0.0-0.1) 10^3/uL Absolute Nucleated RBC 0.00 x10^3/uL Nucleated RBC % 0.0 /100WBC Blood Type O POSITIVE Antibody Screen NEGATIVE
[2019-10-02] MEDS ORDERED: TRANEXAMIC ACID 1,000 MG in SODIUM CHLORIDE 0.9% 100ML 100 ML IV STA (06:39)
--- NOTE | 2019-10-02 11:38 | PROVIDER PROGRESS NOTE ---
Subjective - Prog Note Date Prog Note Date: 10/02/19 Prog Note Time: 11:36 - Subjective Subjective: Very comfortable VSS afeb UO >300cc/hr Normal lochia Fundus firm at umbilicus hgb 9.9; suspect will slightly decrease from that with continued equilibration. No abnormal ongoing bleeding Will DC monsalve. Heplock IV IV iron. Continue routine care Objective - Vital Signs/Intake & Output Vital Signs: Vital Signs x48h Temp Pulse Resp BP Pulse Ox 10/02/19 10:00 99.0 F 75 16 95/31 L 10/02/19 08:00 99.1 F 61 16 95/49 L 10/02/19 07:43 99.1 F 10/02/19 07:22 58 L 16 99 10/02/19 07:18 97/44 L 10/02/19 07:00 64 16 93/42 L 98 10/02/19 06:18 69 16 100/48 L 99 10/02/19 06:00 18 104/58 L 99 Intake & Output: Intake & Output 09/29/19 09/30/19 10/01/19 10/02/19 23:59 23:59 23:59 23:59 Intake Total 1100 600.000 Output Total 400 2250 Balance 700 -1650.000 - Lab Results Fish Bones: 10/02/19 07:10 Other Labs: Lab Results x24hrs 10/02/19 10/01/19 10/01/19 Range/Units 07:10 15:35 15:35 WBC 6.2 (4.8-10.8) x10^3/uL RBC 3.84 L (4.20-5.40) 10^6/uL Hgb 9.9 L 10.8 L (12.0-16.0) g/dL Hct 33.2 L (37.0-47.0) % MCV 86.5 (81.0-99.0) fL MCH 28.1 (27.0-31.0) pg MCHC 32.5 (32.0-36.0) g/dL RDW 14.6 (12.0-15.0) % Plt Count 263 (130-450) 10^3/uL MPV 9.7 (7.9-10.8) fL Neut # (Auto) 4.4 (1.5-6.6) 10^3/uL Lymph # (Auto) 1.2 L (1.5-3.5) 10^3/uL [place] # (Auto) 0.5 (0.0-1.0) 10^3/uL Eos # (Auto) 0.0 (0.0-0.7) 10^3/uL Baso # (Auto) 0.0 (0.0-0.1) 10^3/uL Absolute Nucleated RBC 0.00 x10^3/uL Nucleated RBC % 0.0 /100WBC Blood Type O POSITIVE Antibody Screen NEGATIVE
[2019-10-02] MEDS ORDERED: IRON DEXTRAN 1,000 MG in SODIUM CHLORIDE 0.9% 500 ML IV ONE (12:30)
--- NOTE | 2019-10-02 18:58 | PROVIDER PROGRESS NOTE ---
Subjective - Prog Note Date Prog Note Date: 10/02/19 Prog Note Time: 18:57 - Subjective Subjective: Feeling well. Ambulating, voiding. Reg diet. Scant lochia VSS afeb Continue routine care Objective - Vital Signs/Intake & Output Vital Signs: Vital Signs x48h Temp Pulse Resp BP 10/02/19 16:03 99.0 F 60 16 101/49 L 10/02/19 13:50 98.4 F 65 16 100/51 L 10/02/19 13:15 98.4 F 64 16 10/02/19 13:10 98.4 F 78 16 100/52 L Intake & Output: Intake & Output 09/29/19 09/30/19 10/01/19 10/02/19 23:59 23:59 23:59 23:59 Intake Total 1100 600.000 Output Total 400 5850 Balance 700 -5250.000 - Lab Results Fish Bones: 10/02/19 07:10 Other Labs: Lab Results x24hrs 10/02/19 Range/Units 07:10 Hgb 9.9 L (12.0-16.0) g/dL
--- NOTE | 2019-10-03 11:13 | PROVIDER PROGRESS NOTE ---
Subjective - Prog Note Date Prog Note Date: 10/03/19 Prog Note Time: 11:10 - Subjective Subjective: PPD 1 Feeling well, would like to go home. Minimal lochia, voiding, ambulating, reg diet. going well. VSS afeb Abd soft, non-tender. Fundus firm, below umbilicus. A/P Stable Plan DC home. Wants Nexplanon. Will place if available, otherwise DMPA Objective - Vital Signs/Intake & Output Vital Signs: Vital Signs x48h Temp Pulse Resp BP 10/03/19 08:31 97.5 F L 70 16 101/57 L Intake & Output: Intake & Output 09/30/19 10/01/19 10/02/19 10/03/19 23:59 23:59 23:59 23:59 Intake Total 1100 600.000 Output Total 400 6350 Balance 700 -5750.000 - Lab Results Fish Bones: 10/02/19 07:10
--- NOTE | 2019-10-03 11:19 | DISCHARGE SUMMARY ---
Discharge Summary Admit Date: 10/01/19 Discharge Date: 10/03/19 Code Status: Attempt Resuscitation Condition at Discharge: Good Discharge Disposition: 01 Home, Self Care - DIAGNOSES Admission Diagnoses: at 39 6/7 weeks GBS+ - HPI History of Present Illness: 29yo O+ GBS+ at 39 6/7 weeks by LMP c/w first trimester scan admitted for IOL secondary to exam of 5cm in clinic with h/o fast labor, GBS+. - HOSPITAL COURSE Hospital Course: Induction with pitocin was initiated after the second dose of ampicillin for GBS prophylaxis. She progressed to full dilation and was delivered of a 3806gm female infant apgars 9/9 on 10/02. Delivery was complicated by PPH secondary to retained placenta. EBL was 700cc. She was given pitocin, miso, methergine and TXA. The fragments of placenta were manually removed. Her hgb was 9.9. She received 1000mg IV iron dextran. There was no further bleeding and her course was uncomplicated. She planned Nexplanon for contraception however it was unavailable so depo provera was given. - ALLERGIES Allergies/Adverse Reactions: Allergies Allergy/AdvReac Type Severity Reaction Status Date / Time No Known Drug Allergies Allergy Verified 08/13/19 12:01 - MEDICATIONS Home Medications: Ambulatory Orders Medication Instructions Recorded Confirmed Calcium Carbonate [Tums (Calcium 500 mg PO BID 10/01/19 10/01/19 Carbonate 500mg)] Ferrous Gluconate [Iron] 240 mg PO DAILY 10/01/19 10/01/19 Pnv No.95/Ferrous Fum/Folic AC 1 tab PO DAILY 10/01/19 10/01/19 [ Formula Tablet] - PHYSICAL EXAM AT DISCHARGE General Appearance: positive: No acute distress, Alert Neck: positive: Nml inspection Respiratory: positive: No respiratory distress Cardiovascular: positive: Regular rate & rhythm Abdomen: positive: Non-tender - LABS Result Diagrams: 10/02/19 07:10
--- NOTE | 2019-10-03 11:37 | Discharge Plan ---
Discharge Plan Problem Reviewed?: Yes Disposition: Home, Self Care Condition: Good Diet: Regular Activity Restrictions: Pelvic rest Shower Restrictions: No Driving Restrictions: No Weight Bearing: Full Weight No Smoking: If you smoke, Please STOP! Call for help. Follow-up with: Mik Velazquez MD [Provider Admit Priv/Credential] -
[2019-10-03 11:53] VITALS: BP 98/57
--- NOTE | 2019-10-03 12:48 | Labor Flowsheet ---
Labor Flowsheet Datetime Report Generated by CPN: 10/03/2019 12:47 Datetime: 10/02/2019 13:02 VITAL SIGNS NBP Sys/Marielle/Mean (mmHg): 72 : 51 : 56 Pulse: 78 LaborFlag: Labor Datetime: 10/02/2019 07:34 SpO2 (%): 99 Datetime: 10/02/2019 06:23 Patient Care Comments: 500ccc bolus infused. Datetime: 10/02/2019 05:51 PATIENT CARE IV/Blood Work: New IV Bag Hung Datetime: 10/02/2019 05:23 Stage 2 Comments: TXA infused Datetime: 10/02/2019 05:15 Medication Comments: #2 bag pit hung Datetime: 10/02/2019 04:50 Cervical Ripening Agents: Cytotec @ 800 Datetime: 10/02/2019 04:24 UTERINE ACTIVITY Monitor Mode: External Frequency (min): q2-3 Quality: Strong Duration (sec): 1.5-2 Pattern: Normal: <= 5 Contractions in 10 Minutes Resting Tone (Palpate): Relaxed ASSESSMENT A Monitor Mode: Telemetry FHR Baseline Rate : 115 Variability: Moderate 6-25 bpm Decelerations: Variable Category: Category II Comments: pushes to delivery. Datetime: 10/02/2019 04:15 Accelerations: 15X15 Datetime: 10/02/2019 04:05 STAGE 2 Pushing: Coached on Pushing Pushing Position: Pushing with Contractions Datetime: 10/02/2019 04:00 ANESTHESIA Anesthesia Plans: Epidural Anesthesia Level Check: T10- Umbilicus Datetime: 10/02/2019 03:52 Vaginal Exam Comments: provider notes ruptured bag of membranes Datetime: 10/02/2019 03:45 Communication Comments: provider returns to bedside Datetime: 10/02/2019 03:32 Pushing Progress: Descent with Pushing Datetime: 10/02/2019 03:30 Anesthesia Interview: E Datetime: 10/02/2019 03:20 VAGINAL EXAM Dilatation (cm): 10.0 Station: 1 Datetime: 10/02/2019 03:18 Exam by: K Burckhardt RNC Datetime: 10/02/2019 02:49 Monitor Interventions for FHR: Ultrasound Adjusted Datetime: 10/02/2019 02:44 Patient Position/Activity: Left Lateral Datetime: 10/02/2019 02:29 Monitor Interventions for UA: [place] Adjusted Datetime: 10/02/2019 01:50 Epidural Procedure: Completed Epidural Procedure Other: Pump Started Datetime: 10/02/2019 01:35 Epidural Positioning: Sitting Anesthesia Comments: patient moving significantly in pain alternating positions between squatting a nd hovering over chair. Patient repeatedly states concern re: her ability to remain still during epid ural placement. Patient squats down on floor and has loose bowel movement and voids. Datetime: 10/02/2019 01:00 Antibiotics: Ampicillin IV 1 Gm Datetime: 10/02/2019 00:58 COMMUNICATION Communication: Call/Page Placed to Provider Provider Notified (Name): CAFETERIA ASSISTANT Aube Notification Reason: Patient Request Datetime: 10/02/2019 00:49 Respirations: 22 Temperature (C): 36.7 Datetime: 10/02/2019 00:35 PAIN Pain Assessment Comments: patient reports increasing discomfort and shivers while moving and moanin g in pain. Patient denies pain intervention. Datetime: 10/02/2019 00:13 MEDICATIONS Pitocin (milliunits): Decreased to @ 5 Datetime: 10/01/2019 23:46 I/O Interventions: Up to BR Datetime: 10/01/2019 21:20 Oxygen Method: Room Air Datetime: 10/01/2019 21:10 Pitocin Checklist: At Least 1 Acceleration of 15 bpm x 15 Seconds in 30 Minutes or Adequate Variabi lity; No More than 1 Late Deceleration Occurred in Past 30 Minutes; No More than 2 Variable Decelerat ions > 60 Seconds in Duration and decreasing >60 bpm in 30 minutes; No More than 5 Uterine Contractio ns in 10 Minutes for any 20 Minute Interval; Uterus Palpates Soft between Contractions
== END 2019-10-03 12:00 | disposition home or self-care (01) | DRG 807 ==
LOC: WFO 14:43 → FBP 14:46 → WFO 16:41 → FBP 16:42
PROVIDERS: ADMIT Obstetrics & Gynecology; ATTEND Obstetrics & Gynecology
PROC: 3E033VJ Introduction of Other Hormone into Peripheral Vein, Percutaneous Approach (ICD-10-PCS; 2019-10-01)
PROC: 10E0XZZ Delivery of Products of Conception, External Approach (ICD-10-PCS; principal; 2019-10-02)
PROC: 10D17Z9 Manual Extraction of Products of Conception, Retained, Via Natural or Artificial Opening (ICD-10-PCS; 2019-10-02)
PROC: 0UQMXZZ Repair Vulva, External Approach (ICD-10-PCS; 2019-10-02)
DX: O99.824 Streptococcus B carrier state complicating childbirth (principal); Z37.0 Single live birth; O72.0 Third-stage hemorrhage; O71.82 Other specified trauma to perineum and vulva; O99.284 Endocrine, nutritional and metabolic diseases complicating childbirth; E61.1 Iron deficiency; Z3A.39 39 weeks gestation of pregnancy; Z79.899 Other long term (current) drug therapy; Z87.09 Personal history of other diseases of the respiratory system; Z87.898 Personal history of other specified conditions
CPT/HCPCS: 36415; 85018; 85025; 86850; 86900; 86901; A9270; J1050; J1750; J7120

== ENCOUNTER 2020-11-17 10:36 | Outpatient (CLI) | payer OTHER, MEDICAID | END 2020-11-17 23:59 | disposition home or self-care (01) | LOC: LAB.R 10:36 | PROVIDERS: ATTEND Physician Assistant Medical | DX: R11.10 Vomiting, unspecified (principal); Z20.822 Contact with and (suspected) exposure to COVID-19 ==

== ENCOUNTER 2021-03-01 08:23 | Outpatient (CLI) | payer OTHER, MEDICAID ==
[2021-03-01 08:33] LABS: BILIRUBIN,URINE NEGATIVE (NEGATIVE); GLUCOSE, URINE (UA) NEGATIVE (NEGATIVE); KETONES,URINE (UA) NEGATIVE (NEGATIVE); LEUKOCYTE ESTERASE, URINE NEGATIVE (NEGATIVE); NITRITE,URINE NEGATIVE (NEGATIVE); OCCULT BLOOD,URINE NEGATIVE (NEGATIVE); PROTEIN,URINE NEGATIVE (NEGATIVE); UROBILINOGEN,URINE 0.2 (NORMAL) E.U./dL (NORMAL)
[2021-03-01 08:42] LABS: CLARITY,URINE CLOUDY (CLEAR)
[2021-03-01 08:48] LABS: RBC,URINE 0-5 /HPF (0-5); SQUAMOUS EPITHELIAL CELL,UR FEW Squamous (<= Few); WBC,URINE 0-3 /HPF (0-5)
[2021-03-01 08:49] LABS: AMORPHOUS SEDIMENT,UR Moderate /LPF; BACTERIA,URINE Few /HPF (None Seen)
== END 2021-03-01 08:24 | disposition home or self-care (01) ==
LOC: LAB.R 08:23
PROVIDERS: ATTEND Nurse Practitioner Obstetrics & Gynecology
DX: Z32.01 Encounter for pregnancy test, result positive (principal)
CPT/HCPCS: 81001; 87086

== ENCOUNTER 2021-03-01 13:04 | Outpatient (CLI) | payer OTHER, MEDICAID ==
--- NOTE | 2021-03-01 14:42 | Ultrasound Report ---
PROCEDURE: OB First Trimester w/TV INDICATIONS: POSITIVE TEST OUTSIDE/PRIOR DATING DATA: Last menstrual period (LMP): Unknown. LMP-based estimated date of delivery (JAVIER): Unknown. First dating scan (date and location): 03/01/2021 [place]. Estimated date of delivery (JAVIER) from first dating scan: 09/05/2021. The below data below was generated using the ultrasound JAVIER of 09/05/2021 TECHNIQUE: Real-time scanning was performed of the fetus and maternal pelvic organs, with image documentation. Endovaginal scanning was also performed to better visualize the fetus and maternal ovaries. COMPARISON: None. FINDINGS: Embryo: [place]-rump length measuring 6.91 cm, gestational age 13 weeks 1 day. heart rate 148 bp m. A yolk sac is not seen. No perigestational hemorrhage. Posterior placenta. Measurement variability in dating: +/- 4 weeks by LMP, +/- 7 days by mean sac diameter (use before 6 weeks gestation if crown-rump length not able to be measured), +/- 5 days by crown-rump length (6-12 weeks gestation). Maternal organs: Ovaries are within normal limits. Right corpus luteum measuring 1.9 cm.. Cervix pepito sures 3.1 cm and is closed. IMPRESSION: 1. Carlos living intrauterine at 13 weeks 1 day based on today's crown-rump length. Feta l heart rate 148 bpm. 2. No perigestational hemorrhage. Reviewed by: Jerrell Solares MD on 03/01/2021 2:40 PM PDT Approved by: Jerrell Solares MD on 03/01/2021 2:40 PM PDT Station ID: [id number]
[2021-03-01 14:43] LABS: BASOPHILS % (AUTO) 0.3 %; EOSINOPHILS # (AUTO) 0.1 10^3/uL (0.0-0.7); EOSINOPHILS % (AUTO) 1.3 %; HGB - HEMOGLOBIN 12.9 g/dL (12.0-16.0); LYMPHOCYTES # (AUTO) 1.8 10^3/uL (1.5-3.5); LYMPHOCYTES % (AUTO) 22.2 %; MEAN CORPUSCULAR HEMOGLOBIN 30.4 pg (27.0-31.0); MEAN CORPUSCULAR HGB CONC 33.9 g/dL (32.0-36.0); MEAN CORPUSCULAR VOLUME 89.6 fL (81.0-99.0); MEAN PLATELET VOLUME 9.3 fL (7.9-10.8); MONOCYTES # (AUTO) 0.5 10^3/uL (0.0-1.0); MONOCYTES % (AUTO) 5.8 %; NEUTROPHILS # (AUTO) 5.5 10^3/uL (1.5-6.6); NEUTROPHILS % (AUTO) 69.9 %; PLT - PLATELET COUNT 245 10^3/uL (130-450); RED BLOOD COUNT 4.24 10^6/uL (4.20-5.40); RED CELL DISTRIBUTION WIDTH 12.5 % (12.0-15.0); WHITE BLOOD COUNT 7.9 x10^3/uL (4.8-10.8)
[2021-03-02 12:42] LABS: HEPATITIS C ANTIBODY NON-REACTIVE (NON-REACTIVE)
[2021-03-02 12:43] LABS: HEPATITIS B SURFACE ANTIGEN NON-REACTIVE (NON-REACTIVE)
[2021-03-02 16:07] LABS: HIV AG/AB 4TH GEN NON-REACTIVE (NON-REACTIVE)
== END 2021-03-01 13:05 | disposition home or self-care (01) ==
LOC: DI 13:04
PROVIDERS: ATTEND Nurse Practitioner Obstetrics & Gynecology
DX: Z32.01 Encounter for pregnancy test, result positive (principal); Z36.89 Encounter for other specified antenatal screening
CPT/HCPCS: 36415; 81001; 85025; 86592; 86762; 86787; 86803; 86850; 86900; 86901; 87086; 87340; 87389

== ENCOUNTER 2021-03-05 19:11 | Emergency (ER) | payer OTHER, MEDICAID ==
--- NOTE | 2021-03-05 19:59 | ED Physician Documentation ---
PD HPI ABD PAIN - Stated complaint Stated Complaint: DIZZY, CRAMPING - Chief complaint Chief Complaint: Abd Pain - History obtained from History obtained from: Patient (G3, P2 at 13 weeks. Had a lot of activity today and moving furniture and developed pelvic cramping which was mild to moderate. No fluid loss or bleeding.) Review of Systems Constitutional: denies: Fever, Chills Nose: denies: Rhinorrhea / runny nose, Congestion Cardiac: denies: Chest pain / pressure, Palpitations Respiratory: denies: Dyspnea, Cough PD PAST MEDICAL HISTORY - Past Medical History Cardiovascular: None Respiratory: Asthma, Pneumonia Endocrine/Autoimmune: None GI: None EMPLOYEE RELATIONS DIRECTOR: None : None HEENT: None Psych: None Musculoskeletal: None Derm: None - Past Surgical History Past Surgical History: No - Present Medications Home Medications: Ambulatory Orders Medication Instructions Recorded Confirmed Calcium Carbonate [Tums (Calcium 500 mg PO BID 10/01/19 10/01/19 Carbonate 500mg)] Ferrous Gluconate [Iron] 240 mg PO DAILY 10/01/19 10/01/19 Pnv No.95/Ferrous Fum/Folic AC 1 tab PO DAILY 10/01/19 10/01/19 [ Formula Tablet] Nitrofurantoin Macrocrystal 100 mg PO BID #10 cap 03/05/21 [Macrodantin] - Allergies Allergies/Adverse Reactions: Allergies Allergy/AdvReac Type Severity Reaction Status Date / Time No Known Drug Allergies Allergy Verified 03/05/21 19:22 - Social History Does the pt smoke?: No Smoking Status: Never smoker Does the pt drink ETOH?: Yes Does the pt have substance abuse?: No - Immunizations Immunizations are current?: Yes - POLST Patient has POLST: No PD ED PE NORMAL - Vitals Vital signs reviewed: Yes - General General: Alert and oriented X 3, No acute distress - Abdomen Abdomen: Soft, Non tender, Other (Side ultrasound demonstrates single live intrauterine with a heart rate of about 140. Positive motion.) - Neuro Neuro: Alert and oriented X 3, Normal speech Results - Vitals Vitals: Vital Signs - 24 hr 03/05/21 03/05/21 19:22 20:52 Temperature 36.5 C 36.9 C Heart Rate 100 78 Respiratory 16 18 Rate Blood Pressure 120/75 115/60 O2 Saturation 98 100 Oxygen O2 Source Room air - Labs Labs: Laboratory Tests 03/05/21 20:05 Urine Color YELLOW Urine Clarity SL. CLOUDY Urine pH 6.5 Ur Specific [place] 1.025 Urine Protein 30 H Urine Glucose (UA) NEGATIVE Urine Ketones NEGATIVE Urine Occult Blood NEGATIVE Urine Nitrite NEGATIVE Urine Bilirubin NEGATIVE Urine Urobilinogen 0.2 (NORMAL) Ur Leukocyte Esterase TRACE H Urine RBC 0-5 Urine WBC 0-3 Ur Squamous Epith Cells FEW Squamous Urine Bacteria Few Urine Mucus Few Strands Ur Microscopic Review INDICATED Urine Culture Comments INDICATED PD MEDICAL DECISION MAKING - ED course ED course: and approximate 13 weeks gestation presents with all the cramping today, it was a heavy day for her. There's no evidence of loss or in a miscarriage. Mild evidence of the cystitis treated with Macrobid. Advised to push PO fluids. Departure - Departure Disposition: Home, Self Care Clinical Impression: Cystitis, Cramping complicating , antepartum Condition: Stable Record reviewed to determine appropriate education?: Yes Instructions: ED Preg Established Normal Sxs Prescriptions: Nitrofurantoin Macrocrystal [Macrodantin] 100 mg PO BID #10 cap Comments: You do have mild evidence of a bladder infection, this I think in combination with overdoing it today and mild dehydration probably caused her cramping. Return for new or worsening symptoms. We will culture your urine, if the causative organism is found that is resistant to the antibiotics I am putting you on we will call you to change antibiotics. This usually takes about 2 to 3 days. If we do not call you, either no causative bacteria is grown or the antibiotic should work against the organism we grew. Follow-up with your drilling machine operator, as scheduled. Forms: Activity restrictions Discharge Date/Time: 03/05/21 20:52
[2021-03-05 20:12] LABS: BILIRUBIN,URINE NEGATIVE (NEGATIVE); GLUCOSE, URINE (UA) NEGATIVE (NEGATIVE); KETONES,URINE (UA) NEGATIVE (NEGATIVE); LEUKOCYTE ESTERASE, URINE TRACE (NEGATIVE); NITRITE,URINE NEGATIVE (NEGATIVE); OCCULT BLOOD,URINE NEGATIVE (NEGATIVE); PH,URINE 6.5 PH (5.0-7.5); PROTEIN,URINE 30 mg/dL (NEGATIVE); UROBILINOGEN,URINE 0.2 (NORMAL) E.U./dL (NORMAL)
[2021-03-05 20:14] LABS: CLARITY,URINE SL. CLOUDY (CLEAR)
[2021-03-05 20:18] LABS: BACTERIA,URINE Few /HPF (None Seen); MUCUS,URINE Few Strands; RBC,URINE 0-5 /HPF (0-5); SQUAMOUS EPITHELIAL CELL,UR FEW Squamous (<= Few); WBC,URINE 0-3 /HPF (0-5)
[2021-03-05] MEDS ORDERED: NITROFURANTOIN MACRO 100 MG CAPSULE PO STA (20:43)
[2021-03-05 20:53] VITALS: BP 115/60
== END 2021-03-05 20:52 | disposition home or self-care (01) ==
LOC: ED 19:11
DX: O23.11 Infections of bladder in pregnancy, first trimester (principal); O99.281 Endocrine, nutritional and metabolic diseases complicating pregnancy, first trimester; E86.0 Dehydration; Z3A.13 13 weeks gestation of pregnancy
CPT/HCPCS: 81001; 87086; 99283; A9270; 81003

== ENCOUNTER 2021-03-12 08:00 | Outpatient (CLI) | payer OTHER, MEDICAID ==
[2021-03-12 21:47] LABS: CHLAMYDIA TRACHOMATIS DNA NEGATIVE (NEGATIVE); NEISSERIA GONORRHOEAE DNA NEGATIVE (NEGATIVE); TRICHOMONAS VAGINALIS DNA NEGATIVE (NEGATIVE)
== END 2021-03-12 23:59 | disposition home or self-care (01) ==
LOC: LAB.WC 08:00
PROVIDERS: ATTEND Advanced Practice Midwife
DX: Z34.90 Encounter for supervision of normal pregnancy, unspecified, unspecified trimester (principal)
CPT/HCPCS: 87491; 87591; 87661

== ENCOUNTER 2021-04-06 18:33 | Emergency (ER) | payer OTHER, MEDICAID ==
[2021-04-06 19:05] LABS: BILIRUBIN,URINE NEGATIVE (NEGATIVE); GLUCOSE, URINE (UA) NEGATIVE (NEGATIVE); KETONES,URINE (UA) NEGATIVE (NEGATIVE); LEUKOCYTE ESTERASE, URINE NEGATIVE (NEGATIVE); NITRITE,URINE NEGATIVE (NEGATIVE); OCCULT BLOOD,URINE NEGATIVE (NEGATIVE); PROTEIN,URINE NEGATIVE (NEGATIVE); UROBILINOGEN,URINE 0.2 (NORMAL) E.U./dL (NORMAL)
[2021-04-06 19:08] LABS: CLARITY,URINE CLEAR (CLEAR); HCG UR QUAL POSITIVE
--- NOTE | 2021-04-06 20:18 | ED Physician Documentation ---
History of Present Illness - Stated complaint Stated Complaint: FEMALE - Chief complaint Chief Complaint: UTI - History obtained from History obtained from: Patient - Additonal information Additional information: Her boyfriend recently was treated for urethritis and she is upset because now she has to be tested as well. She has no symptoms. She is 18 weeks . Review of Systems Constitutional: reports: Reviewed and negative Throat: reports: Reviewed and negative Cardiac: reports: Reviewed and negative Respiratory: reports: Reviewed and negative PD PAST MEDICAL HISTORY - Past Medical History Cardiovascular: None Respiratory: Asthma, Pneumonia Endocrine/Autoimmune: None GI: None CYCLE MANAGER: None : None HEENT: None Psych: None Musculoskeletal: None Derm: None - Past Surgical History Past Surgical History: No - Present Medications Home Medications: Ambulatory Orders Medication Instructions Recorded Confirmed No Known Home Medications 04/06/21 04/06/21 - Allergies Allergies/Adverse Reactions: Allergies Allergy/AdvReac Type Severity Reaction Status Date / Time No Known Drug Allergies Allergy Verified 04/06/21 18:45 - Social History Does the pt smoke?: No Smoking Status: Never smoker Does the pt drink ETOH?: Yes Does the pt have substance abuse?: No Substance Use and Type: Marijuana - Immunizations Immunizations are current?: Yes - POLST Patient has POLST: No PD ED PE NORMAL - Vitals Vital signs reviewed: Yes - General General: Alert and oriented X 3, No acute distress - Abdomen Abdomen: Soft, Non tender - Neuro Neuro: Alert and oriented X 3, Normal speech Results - Vitals Vitals: Vital Signs - 24 hr 04/06/21 18:46 Temperature 37.0 C Heart Rate 80 Respiratory 18 Rate Blood Pressure 122/80 O2 Saturation 100 Oxygen O2 Source Room air - Labs Labs: Laboratory Tests 04/06/21 18:55 Urine Color YELLOW Urine Clarity CLEAR Urine pH 6.0 Ur Specific [place] 1.010 Urine Protein NEGATIVE Urine Glucose (UA) NEGATIVE Urine Ketones NEGATIVE Urine Occult Blood NEGATIVE Urine Nitrite NEGATIVE Urine Bilirubin NEGATIVE Urine Urobilinogen 0.2 (NORMAL) Ur Leukocyte Esterase NEGATIVE Ur Microscopic Review NOT INDICATED Urine Culture Comments NOT INDICATED Urine HCG, Qual POSITIVE PD MEDICAL DECISION MAKING - ED course ED course: I offered Rocephin and Zithromax for related STD exposure, she declined would like to wait for the test results. Departure - Departure Disposition: 01 Home, Self Care Clinical Impression: Concern about STD in female without diagnosis Condition: Good Record reviewed to determine appropriate education?: Yes Comments: You have a Gonorrhea and Chlamydia tests pending. The results should be done in 48 to 72 hours. We will call with a positive result, the fastest way to get a negative result for confirmation though is to go to the hospital website at [email or web address], click on the my [employer] tab and sign up for the patient portal.
[2021-04-06 20:24] VITALS: BP 121/75
[2021-04-06 23:56] LABS: CHLAMYDIA TRACHOMATIS DNA NEGATIVE (NEGATIVE); NEISSERIA GONORRHOEAE DNA NEGATIVE (NEGATIVE); TRICHOMONAS VAGINALIS DNA NEGATIVE (NEGATIVE)
== END 2021-04-06 20:23 | disposition home or self-care (01) ==
LOC: ED 18:33
DX: Z20.2 Contact with and (suspected) exposure to infections with a predominantly sexual mode of transmission (principal)
CPT/HCPCS: 81001; 81003; 81025; 87086; 87491; 87591; 87661; 99281; 99283

== ENCOUNTER 2021-04-17 18:28 | Outpatient (CLI) | payer OTHER, MEDICAID ==
--- NOTE | 2021-04-18 16:52 | Ultrasound Report ---
PROCEDURE: OB Detailed Eval INDICATIONS: SUPERVISION OF NORMAL OUTSIDE/PRIOR DATING DATA: Last menstrual period (LMP): Not available. LMP-based estimated date of delivery (JAVIER): Not available. First dating scan (date and location): 03/01/2021. Estimated date of delivery (JAVIER) from first dating scan: 09/05/2021. The below data below was generated using the above JAVIER of 09/05/2021 TECHNIQUE: Real-time scanning was performed of the fetus, with image documentation and biometric measurements. Endovaginal scanning: Not needed COMPARISON: 03/01/2021 FINDINGS: General: A single living intrauterine gestation is present. Presentation: Breech Placenta: Placental position is posterior, without previa but it appears low lying.. Amniotic fluid index: 16.7 cm, normal for gestational age. heart rate: 147 beats per minute. Maternal cervical canal: 5.0 cm long; normal length is 2.5 cm or more. biometrics: Biparietal diameter: 4.5 cm, 19 weeks 4 days Head circumference: 17.1 cm, 19 weeks 5 days Abdominal circumference: 16.0 cm, 21 weeks 1 day Femur length: 3.2 cm, 19 weeks 6 days Estimated gestational age from initial scan: 19 weeks 6 days. Composite gestational age from present scan: 20 weeks 0 days Estimated weight and percentile: 351 g, 77th percentile Measurement variability in biometric dating: +/- 10 days from 12-20 weeks gestation, +/- 2 weeks from 20-30 weeks gestation, +/- 3 weeks at 30 weeks gestation or later. Anatomic survey: Neuro: Ventricles are normal at less than 10 mm. Cisterna magna is normal at 3-11 mm. Cerebellum i s normal in size and morphology. Nuchal skin fold: Not well seen Face: Nose and lips, facial profile are not well seen. Spine: No evidence for spina bifida but quality of visualization of the spine is limited and should be repeated.. Heart: Not well seen due to positioning Diaphragm: Diaphragm is intact. Stomach: Left-sided stomach is present. Kidneys: No hydronephrosis. Normal is less than 5 mm in 2nd trimester, less than 7 mm in 3rd trimester. Cord: 3 vessel cord has orthotopic insertion. Bladder: Normal in size. Extremities: All 4 extremities are visualized. IMPRESSION: 1. Appropriate interval growth. 2. positioning precludes excellent visualization of the anatomy detailed above as not wel l seen. Limited follow-up OB ultrasound is recommended to complete the anatomic survey. 3. Low-lying placenta. Further assessment of the placental position in relationship to the internal o s of the cervical canal can be performed during the follow-up anatomic survey completion that i s anticipated. Reviewed by: Carlos Bradford MD on 04/18/2021 4:51 PM PDT Approved by: Carlos Bradford MD on 04/18/2021 4:51 PM PDT Station ID: [id number]
== END 2021-04-17 18:29 | disposition home or self-care (01) ==
LOC: DI 18:28
PROVIDERS: ATTEND Advanced Practice Midwife
DX: O44.42 Low lying placenta NOS or without hemorrhage, second trimester (principal); Z3A.20 20 weeks gestation of pregnancy; Z36.89 Encounter for other specified antenatal screening

== ENCOUNTER 2021-05-07 12:22 | Outpatient (CLI) | payer OTHER, MEDICAID ==
[2021-05-07 21:07] LABS: CHLAMYDIA TRACHOMATIS DNA NEGATIVE (NEGATIVE); NEISSERIA GONORRHOEAE DNA NEGATIVE (NEGATIVE); TRICHOMONAS VAGINALIS DNA NEGATIVE (NEGATIVE)
[2021-05-08 11:56] LABS: AFP MOM 1.03; AGE RISK DOWN SYNDROME 1 IN 601; CALC'D GESTATIONAL AGE 22.7 weeks; CIGARETTE SMOKER? NOT GIVEN; DONOR AGE: EGG RETRIEVAL NOT GIVEN; DONOR EGG NO; EDD DETERMINED BY ULTRASOUND; ESTRIOL MOM 1.56; HCG MOM 0.57; HX OF NEURAL TUBE DEFECTS NO; INHIBIN A MOM 0.99; INSULIN DEPEND DIABETIC NO; MATERNAL WEIGHT 174 lbs; MSS DOWN SYNDROME RISK <1 IN 5000; MSS3 TRISOMY 18 RISK <1 IN 5000; NUMBER OF FETUSES 1; PREV PREGNANCY DOWN SYND NO; RISK FOR ONTD 1 IN 3172
== END 2021-05-07 12:23 | disposition home or self-care (01) ==
LOC: LAB 12:22
PROVIDERS: ATTEND Advanced Practice Midwife
DX: Z34.90 Encounter for supervision of normal pregnancy, unspecified, unspecified trimester (principal); Z36.0 Encounter for antenatal screening for chromosomal anomalies
CPT/HCPCS: 81511; 87491; 87591; 87661

== ENCOUNTER 2021-05-07 18:07 | Outpatient (CLI) | payer OTHER, MEDICAID ==
--- NOTE | 2021-05-08 11:17 | Ultrasound Report ---
PROCEDURE: OB F/U or Repeat INDICATIONS: LOW LYING PLACENTA OUTSIDE/PRIOR DATING DATA: Last menstrual period (LMP): Unknown. LMP-based estimated date of delivery (JAVIER): Unknown. First dating scan (date and location): 03/01/2021. Estimated date of delivery (JAVIER) from first dating scan: 09/05/2021. The below data below was generated using the ultrasound JAVIER of 09/05/2021 TECHNIQUE: Real-time scanning was performed of the fetus, with image documentation and biometric measurements. Endovaginal scanning: Not performed COMPARISON: Ultrasound dated 03/01/2021, 04/17/2021 FINDINGS: General: A single living intrauterine gestation is present. Presentation: Transverse, head maternal left Placenta: Placental position is posterior, without previa. Amniotic fluid index: 18.1 cm, normal for gestational age. Largest pocket measures 5.1 cm heart rate: 135 beats per minute. Maternal cervical canal: 5.6 cm long; normal length is 2.5 cm or more. Estimated gestational age from initial scan: 22 weeks 5 days. Other: Normal appearance of the face/lips, four-chamber heart, outflow tracts, chest, stomach, kidney s, and placental cord insertion and urinary bladder. Interval resolution of low-lying placenta. IMPRESSION: Single living intrauterine fetus. Completion of normal anatomic survey as above. Normal JESSIE Reviewed by: Dallas Dooley MD on 05/08/2021 11:15 AM PDT Approved by: Dallas Dooley MD on 05/08/2021 11:15 AM PDT Station ID: [id number]
== END 2021-05-07 18:08 | disposition home or self-care (01) ==
LOC: DI 18:07
PROVIDERS: ATTEND Nurse Practitioner Obstetrics & Gynecology
DX: O44.02 Complete placenta previa NOS or without hemorrhage, second trimester (principal); Z3A.22 22 weeks gestation of pregnancy; Z36.0 Encounter for antenatal screening for chromosomal anomalies; Z36.89 Encounter for other specified antenatal screening
CPT/HCPCS: 81511; 87491; 87591; 87661

== ENCOUNTER 2021-06-12 08:00 | Outpatient (CLI) | payer OTHER, MEDICAID ==
[2021-06-12 20:14] LABS: BACTERIAL VAGINOSIS DNA NEGATIVE (NEGATIVE); CANDIDA GLABRATA DNA NEGATIVE (NEGATIVE); CANDIDA GROUP DNA NEGATIVE (NEGATIVE); CANDIDA KRUSEI DNA NEGATIVE (NEGATIVE); TRICHOMONAS VAGINALIS DNA NEGATIVE (NEGATIVE)
== END 2021-06-12 23:59 | disposition home or self-care (01) ==
LOC: LAB.WC 08:00
PROVIDERS: ATTEND Nurse Practitioner Obstetrics & Gynecology
DX: N76.0 Acute vaginitis (principal)
CPT/HCPCS: 87661; 87801

== ENCOUNTER 2021-06-18 10:04 | Outpatient (CLI) | payer OTHER, MEDICAID ==
[2021-06-18 12:04] LABS: HCT - HEMATOCRIT 37.6 % (37.0-47.0); HGB - HEMOGLOBIN 12.4 g/dL (12.0-16.0); MEAN CORPUSCULAR HEMOGLOBIN 30.1 pg (27.0-31.0); MEAN CORPUSCULAR VOLUME 91.3 fL (81.0-99.0); MEAN PLATELET VOLUME 9.7 fL (7.9-10.8); RED BLOOD COUNT 4.12 10^6/uL (4.20-5.40); RED CELL DISTRIBUTION WIDTH 13.1 % (12.0-15.0); WHITE BLOOD COUNT 8.9 x10^3/uL (4.8-10.8)
== END 2021-06-18 23:59 | disposition home or self-care (01) ==
LOC: LAB.WCP 10:04
PROVIDERS: ATTEND Nurse Practitioner Obstetrics & Gynecology
DX: Z34.90 Encounter for supervision of normal pregnancy, unspecified, unspecified trimester (principal); Z36.89 Encounter for other specified antenatal screening
CPT/HCPCS: 36415; 82950; 85027

== ENCOUNTER 2021-08-07 08:00 | Outpatient (CLI) | payer OTHER, MEDICAID | END 2021-08-07 23:59 | disposition home or self-care (01) | LOC: LAB.WC 08:00 | PROVIDERS: ATTEND Nurse Practitioner Obstetrics & Gynecology | DX: Z36.85 Encounter for antenatal screening for Streptococcus B (principal) | CPT/HCPCS: 87797 ==

== ENCOUNTER 2021-09-04 16:11 | Inpatient (IN) | payer OTHER, MEDICAID ==
[2021-09-04] MEDS ORDERED: OXYTOCIN 10 UNIT/ML VIAL IM PRN (16:58)
[2021-09-04] MEDS ORDERED: LIDOCAINE-MPF 1% 30 ML VIAL ID PRN (16:58)
[2021-09-04] MEDS ORDERED: TRANEXAMIC ACID IN NACL 1,000 MG/100 ML BAG IV PRN (16:58)
[2021-09-04] MEDS ORDERED: ONDANSETRON 4 MG/2 ML VIAL IVP PRN (16:58)
[2021-09-04] MEDS ORDERED: CARBOPROST TROMETHAMINE 250 MCG/ML AMP IM PRN (16:58)
[2021-09-04] MEDS ORDERED: METHYLERGONOVINE 0.2 MG/ML VIAL IM PRN (16:58)
[2021-09-04] MEDS ORDERED: AMPICILLIN 2 GM in SODIUM CHLORIDE 0.9% MINIBAG 100 ML IV ONE (16:58)
[2021-09-04] MEDS ORDERED: SODIUM CHLORIDE FLUSH 0.9% 10 ML SYRINGE IVP PRN (16:58)
[2021-09-04] MEDS ORDERED: miSOPROStoL 200 MCG TABLET BC PRN (16:58)
[2021-09-04] MEDS ORDERED: SODIUM CHLORIDE FLUSH 0.9% 10 ML SYRINGE IVP SCH (17:00)
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
[2021-09-04 17:19] LABS: BASOPHILS % (AUTO) 0.3 %; EOSINOPHILS # (AUTO) 0.1 10^3/uL (0.0-0.7); EOSINOPHILS % (AUTO) 0.9 %; HCT - HEMATOCRIT 36.6 % (37.0-47.0); LYMPHOCYTES # (AUTO) 1.4 10^3/uL (1.5-3.5); LYMPHOCYTES % (AUTO) 15.9 %; MEAN CORPUSCULAR HEMOGLOBIN 28.4 pg (27.0-31.0); MEAN CORPUSCULAR HGB CONC 32.8 g/dL (32.0-36.0); MEAN CORPUSCULAR VOLUME 86.7 fL (81.0-99.0); MEAN PLATELET VOLUME 9.7 fL (7.9-10.8); MONOCYTES # (AUTO) 0.7 10^3/uL (0.0-1.0); NEUTROPHILS # (AUTO) 6.5 10^3/uL (1.5-6.6); PLT - PLATELET COUNT 274 10^3/uL (130-450); RED BLOOD COUNT 4.22 10^6/uL (4.20-5.40); RED CELL DISTRIBUTION WIDTH 14.7 % (12.0-15.0); WHITE BLOOD COUNT 8.9 x10^3/uL (4.8-10.8)
[2021-09-04] MEDS: LACTATED RINGERS 1,000 ML IV SCH ×2 (20:38→23:27)
[2021-09-04] MEDS ORDERED: OXYTOCIN/SODIUM CHLORIDE 500 ML IV SCH (21:00)
[2021-09-04] MEDS ORDERED: CALCIUM CARBONATE CHEW 500 MG TABLET PO SCH (21:00)
[2021-09-04] MEDS ORDERED: AMPICILLIN 1 GM in SODIUM CHLORIDE 0.9% MINIBAG 100 ML IV SCH (21:00)
[2021-09-04] MEDS ORDERED: ROPIVACAINE 0.2% 200 MG/100 ML BAG EP ONE (22:26)
--- NOTE | 2021-09-04 22:26 | ANESTHESIA ---
Pre-Anesthesia VS, & Labs - Diagnosis Active Labor - Procedure vaginal delivery Vital Signs: Temp Pulse Resp BP Pulse Ox 37.0 C 86 16 116/72 09/04/21 16:30 09/04/21 16:30 09/04/21 16:30 09/04/21 16:30 Height: 4 ft 10.5 in Weight (kg): 86.818 kg Body Mass Index: 39.3 BMI Classification: Obese - NPO Last Fluid Intake: clear liquids - Is Patient ?: Yes - Lab Results Current Lab Results: Laboratory Tests 09/04/21 17:00: Blood Type O POSITIVE, Antibody Screen NEGATIVE 09/04/21 17:00: WBC 8.9, RBC 4.22, Hgb 12.0, Hct 36.6 L, MCV 86.7, MCH 28.4, MCHC 32.8, RDW 14.7, Plt Count 274, MPV 9.7, Neut # (Auto) 6.5, Lymph # (Auto) 1.4 L, [place] # (Auto) 0.7, Eos # (Auto) 0.1, Baso # (Auto) 0.0, Absolute Nucleated RBC 0.00, Nucleated RBC % 0.0 Lab results reviewed: Yes Fish Bones: 09/04/21 17:00 Home Medications and Allergies Active Medications Calcium Carbonate/Glycine (Calcium Carbonate Chew 500 Mg Tablet) 1,000 mg PO BID [facility] Last Admin: 09/04/21 20:02 Dose: 1,000 mg Documented by: Carboprost Tromethamine (Carboprost Tromethamine 250 Mcg/Ml Amp) 250 mcg IM Q15M PRN PRN Reason: Step 4: Hemorrhage protocol Stop: 09/09/21 16:58 Oxytocin/Sodium Chloride (Pitocin/Sodium Chloride) 500 mls @ 999 mls/hr IV PRN PRN; Protocol PRN Reason: POST- HEMORR PREVENTION Stop: 09/09/21 16:58 Tranexamic Acid (Tranexamic 1,000 Mg/100ml-Nacl) 1,000 mg in 100 mls @ 600 mls/hr IV .ONCE PRN PRN Reason: EBL >1200mL and within 3hr Stop: 09/09/21 16:58 Lactated Ringer's (Lr) 1,000 mls @ 100 mls/hr IV .Q10H NILSON Last Admin: 09/04/21 20:38 Dose: 100 mls/hr Documented by: Oxytocin/Sodium Chloride (Pitocin/Sodium Chloride) 500 mls @ 1 mls/hr IV TITR NILSON; Protocol Last Admin: 09/04/21 20:45 Dose: 1 milliunit/min, 1 mls/hr Documented by: Lidocaine HCl (Lidocaine-Mpf 1% 30 Ml Vial) 30 ml ID .ONCE PRN PRN Reason: PERINEAL REPAIR Stop: 09/09/21 16:58 Methylergonovine Maleate (Methylergonovine 0.2 Mg/Ml Vial) 0.2 mg IM .ONCE PRN PRN Reason: Step 2: Hemorrhage protocol Stop: 09/09/21 16:58 Misoprostol (Misoprostol 200 Mcg Tablet) 800 mcg BC .ONCE PRN PRN Reason: Step 3: Hemorrhage protocol Stop: 09/09/21 16:58 Ondansetron HCl (Ondansetron 4 Mg/2 Ml Vial) 4 mg IVP Q4HR PRN PRN Reason: Nausea / Vomiting Oxytocin (Oxytocin 10 Unit/Ml Vial) 10 unit IM .ONCE PRN PRN Reason: Step one: If no IV access Stop: 09/09/21 16:58 Sodium Chloride (Sodium Chloride Flush 0.9% 10 Ml Syringe) 10 ml IVP 0100,0900,1700 NILSON Sodium Chloride (Sodium Chloride Flush 0.9% 10 Ml Syringe) 10 ml IVP PRN PRN PRN Reason: NEEDED PER PROVIDER ORDERS No Known Home Medications 04/06/21 Allergies/Adverse Reactions: Allergies Allergy/AdvReac Type Severity Reaction Status Date / Time No Known Drug Allergies Allergy Verified 09/04/21 19:17 Anes History & Medical History - Anesthetic History Family history of Anesthesia Complications: Denies Family history of Malignant Hyperthermia: Denies - Medical History Cardiovascular: reports: None Pulmonary: reports: Asthma (childhood asthma, has not used inhalers for years) Gastrointestinal: reports: None Urinary: reports: None Neuro: reports: Other (Sciatica) Musculoskeletal: reports: None Endocrine/Autoimmune: reports: None Blood Disorders: reports: None Skin: reports: None Smoking Status: Never smoker - Obstetrical History : 3 Parity: 2 Events: reports: None Complications: reports: None Exam General: Alert, Oriented x3, Cooperative, No acute distress Dental: WNL Mouth Openin Fingerbreadth Neck Mobility: Normal Mallampati classification: I Thyromental Distance: 4-6 cm Mental/Cognitive Status: Alert/Oriented X3, Normal for patient Plan Anesthesia Type: Epidural Consent for Procedure(s) Verified and Reviewed: Yes Code Status: Attempt Resuscitation ASA classification: 2-Mild systemic disease Is this case an emergency?: No
[2021-09-04] MEDS ORDERED: NALOXONE 0.4 MG/ML VIAL IVP PRN (22:30)
[2021-09-04] MEDS ORDERED: ROPIVACAINE 0.2% 200 MG/100 ML BAG EP PRN (22:30)
[2021-09-05] MEDS: ePHEDrine 50 MG/ML VIAL IVP PRN ×2 (00:49→00:54)
[2021-09-05] MEDS: OXYTOCIN/SODIUM CHLORIDE 500 ML IV PRN ×3 (04:24→10:48)
--- NOTE | 2021-09-05 04:52 | PROVIDER PROGRESS NOTE ---
Labor Progress Note - Uterine Monitoring Uterine Monitoring Mode: positive: External toco Contraction Frequency (min/apart): intermittent, irregular Contraction Intensity: positive: Mild Uterine Resting Tone: positive: Soft - Monitoring Monitor Mode: positive: External ultrasound Heart Rate Baseline: 125 Heart Rate Variability: positive: Moderate (6-25 bmp) Accelerations: positive: Present, 15x15 Decelerations: positive: None Strip Review: positive: Category I - Vaginal Exam Dilation (in cm): 5 Effacement (%): 100 Station: -2 - Labor Progress Note Labor Progress Note/Additional Text: S: Pt not feeling contractions at this time. She is nervous about feeling pain in labor and feels better after discussion with nurse about timing of epidural. Her partner Adam is supportive at the bedside. O: FHR baseline 120s, moderate variability, + accels, no decels Contractions palpate mild, intermittently with soft resting tone SVE deferred at this time. Vertex A: 31yo @ 39.6wks gestation by 13.1wk U/S Elective IOL GBS NEGATIVE (previously recorded in error as GBS positive) FHR Category I P: Initiate pitocin for labor augmentation with titration per protocol Continuous monitoring. Jacuzzi PRN. Nitrous oxide PRN. Epidural per maternal request. Anticipate .
--- NOTE | 2021-09-05 05:00 | DELIVERY NOTE ---
Delivery Note - Labor Labor: positive: Augmented by oxytocin, Induced by ARM - Delivery Method Infant Delivery Method: positive: Spontaneous vaginal delivery - Presentation Presentation: positive: Vertex, DONATO - left occiput anterior - Nuchal Cord Nuchal Cord: positive: None - Amniotic Fluid Description Amniotic Fluid Description: positive: Clear - Episiotomy Type Episiotomy Type: positive: None - Laceration Laceration: positive: None - Delivery Outcome Delivery Outcome: positive: Livebirth - [place] : positive: Placed in direct skin contact with mother, Stimulated, Warmed, [place] used sex: positive: Male - Cord Cord: positive: 3 vessels - Placenta Placenta: positive: Intact, Spontaneous - Estimated Blood Loss Estimated Blood Loss (in cc): 306 (QBL) - Post Delivery Events Post Delivery Events: positive: No post delivery events - Delivery Comments (Free Text/Narrative) Delivery Comments (Free Text/Narrative): Note: Labor: This 31yo @ 40.0wks gestation by 13.1wk U/S and unknown LMP presented on 09/04/2021 @ 1630 for elective induction of labor. Cervix was 5/80/-2 and vertex. FHR pattern demonstrated Category I pattern throughout labor. AROM occurred at 1819 and was noted to be a small amount of clear fluid. Pitocin initiated for labor augmentation with a maximum infusion rate of 3mU/mL. Normal labor course. Epidural placed per maternal request. Pt progressed to c/c/+1 @ 0414 with onset of spontaneous pushing at 0417. : Normal of viable male on 09/05/2021 @ 0420. No nuchal cord. The was stimulated, dried, and placed skin to skin. Apgars were 9/9 at 1 and 5 minutes respectively. Pitocin administered via IV for hemostasis. The umbilical cord was allowed to stop pulsating at which time it was doubly clamped by CNM and cut by FOB. Cord blood was obtained. 3VC. Fundal massage and gentle cord traction applied for active management of the third stage. Placenta delivered spontaneously and intact at 0429. QBL 306mL. Fourth stage: Uterine fundus firm and there is no excessive bleeding. The perineum, vagina, and cervix were inspected and noted to be intact. initiated. Family bonding well. Both mother and baby were left in stable condition.
[2021-09-05] MEDS ORDERED: WITCH HAZEL/GLYCERIN 1 PAD TOP PRN (05:08)
[2021-09-05] MEDS ORDERED: HYDROCORTISONE 1% CREAM 28 GM TUBE PR PRN (05:08)
[2021-09-05] MEDS: ACETAMINOPHEN 500 MG TABLET PO SCH ×3 (05:55→21:09)
[2021-09-05] MEDS ORDERED: LACTATED RINGERS 1,000 ML IV SCH ×2 (06:00→09:00)
[2021-09-05] MEDS ORDERED: METHYLERGONOVINE 0.2 MG/ML VIAL ONE ×2 (06:18→06:53)
[2021-09-05] MEDS ORDERED: TRANEXAMIC ACID IN NACL 1,000 MG/100 ML BAG IV ONE (06:27)
[2021-09-05] MEDS ORDERED: CARBOPROST TROMETHAMINE 250 MCG/ML AMP IM ONE ×2 (06:28→06:53)
[2021-09-05] MEDS ORDERED: miSOPROStoL 200 MCG TABLET ONE (06:52)
[2021-09-05] MEDS ORDERED: LIDOCAINE MPF 2%-EPI 1:200000 20 ML VIAL ONE (07:03)
[2021-09-05 07:16] LABS: BASOPHILS # (AUTO) 0.1 10^3/uL (0.0-0.1); BASOPHILS % (AUTO) 0.3 %; EOSINOPHILS # (AUTO) 0.1 10^3/uL (0.0-0.7); EOSINOPHILS % (AUTO) 0.3 %; HCT - HEMATOCRIT 31.6 % (37.0-47.0); HGB - HEMOGLOBIN 10.4 g/dL (12.0-16.0); LYMPHOCYTES # (AUTO) 1.3 10^3/uL (1.5-3.5); LYMPHOCYTES % (AUTO) 7.5 %; MEAN CORPUSCULAR HEMOGLOBIN 28.7 pg (27.0-31.0); MEAN CORPUSCULAR HGB CONC 32.9 g/dL (32.0-36.0); MEAN CORPUSCULAR VOLUME 87.3 fL (81.0-99.0); MEAN PLATELET VOLUME 10.1 fL (7.9-10.8); MONOCYTES # (AUTO) 1.5 10^3/uL (0.0-1.0); MONOCYTES % (AUTO) 8.7 %; NEUTROPHILS # (AUTO) 13.6 10^3/uL (1.5-6.6); NEUTROPHILS % (AUTO) 82.2 %; PLT - PLATELET COUNT 234 10^3/uL (130-450); RED BLOOD COUNT 3.62 10^6/uL (4.20-5.40); RED CELL DISTRIBUTION WIDTH 14.7 % (12.0-15.0); WHITE BLOOD COUNT 16.6 x10^3/uL (4.8-10.8)
[2021-09-05] MEDS ORDERED: AZITHROMYCIN INJ 500 MG in SODIUM CHLORIDE 0.9% 250 ML IV STA (07:27)
[2021-09-05] MEDS ORDERED: LACTATED RINGERS 1,000 ML IV ONE ×2 (08:45→09:38)
[2021-09-05] MEDS ORDERED: NALOXONE 0.4 MG/ML VIAL IVP PRN (08:56)
[2021-09-05] MEDS ORDERED: HYDROmorphone 0.5 MG/0.5 ML SYRINGE IVP PRN (08:56)
[2021-09-05] MEDS ORDERED: ePHEDrine 50 MG/ML VIAL IVP PRN (08:56)
[2021-09-05] MEDS ORDERED: ATROPINE ABBOJECT 1 MG/10 ML SYRINGE IVP PRN (08:56)
[2021-09-05] MEDS ORDERED: fentaNYL 100 MCG/2 ML VIAL IVP PRN (08:56)
[2021-09-05] MEDS ORDERED: MORPHINE 2 MG/ML CARPUJECT IVP PRN (08:56)
[2021-09-05] MEDS ORDERED: ONDANSETRON 4 MG/2 ML VIAL IVP PRN (08:56)
[2021-09-05] MEDS ORDERED: METOCLOPRAMIDE 10 MG/2 ML VIAL IVP PRN (08:56)
[2021-09-05] MEDS ORDERED: oxyCODONE 5 MG TABLET PO PRN ×2 (09:13→09:34)
[2021-09-05] MEDS ORDERED: OXYTOCIN/SODIUM CHLORIDE 500 ML IV PRN (09:34)
[2021-09-05] MEDS ORDERED: SIMETHICONE CHEW 80 MG TABLET PO PRN (09:34)
[2021-09-05] MEDS ORDERED: ONDANSETRON ODT 4 MG TABLET TL PRN (09:34)
[2021-09-05 09:55] LABS: BASOPHILS # (AUTO) 0.1 10^3/uL (0.0-0.1); BASOPHILS % (AUTO) 0.4 %; EOSINOPHILS # (AUTO) 0.2 10^3/uL (0.0-0.7); EOSINOPHILS % (AUTO) 0.9 %; HCT - HEMATOCRIT 31.8 % (37.0-47.0); HGB - HEMOGLOBIN 10.7 g/dL (12.0-16.0); LYMPHOCYTES # (AUTO) 0.7 10^3/uL (1.5-3.5); LYMPHOCYTES % (AUTO) 3.9 %; MEAN CORPUSCULAR HGB CONC 33.6 g/dL (32.0-36.0); MEAN CORPUSCULAR VOLUME 86.2 fL (81.0-99.0); MEAN PLATELET VOLUME 9.7 fL (7.9-10.8); MONOCYTES # (AUTO) 0.8 10^3/uL (0.0-1.0); MONOCYTES % (AUTO) 4.7 %; NEUTROPHILS # (AUTO) 15.8 10^3/uL (1.5-6.6); NEUTROPHILS % (AUTO) 89.1 %; PLT - PLATELET COUNT 190 10^3/uL (130-450); RED BLOOD COUNT 3.69 10^6/uL (4.20-5.40); RED CELL DISTRIBUTION WIDTH 14.8 % (12.0-15.0); WHITE BLOOD COUNT 17.7 x10^3/uL (4.8-10.8)
--- NOTE | 2021-09-05 09:57 | OPERATIVE REPORT ---
Operative Report - General Admit Date: 09/04/21 Procedure Date: 09/05/21 Planned Procedure: Dilation and curettage Bakri balloon placement Possible hysterectomy Pre-Op Diagnosis: hemorrhage Procedure Performed: Exam under anesthesia Dilation and curettage Bakri balloon placement Post Op Diagnosis: same and massive transfusion - Procedure Note Primary Surgeon: Emi Ricks MD Secondary Surgeon: YUE Frank CNM Anesthesia Provider: Priscilla Rios CRNA and WHITNEY Cheek Anesthesia Technique: General ET tube Pathology: None IV Fluids (mL): 3,500 (3500 crystalloid, 4 unots PRBC, 1 unit FFP, 1 plt) Estimated Blood Loss (mL): 3,000 Urine Output (mL): 100 (confirm with anesthesia record) Indications: Patient is a 31 yo s/p this am with delayed hemorrhage. Labor course as below: Labor: This 31yo @ 40.0wks gestation by 13.1wk U/S and unknown LMP presented on 09/04/2021 @ 1630 for elective induction of labor. Cervix was 5/80/-2 and vertex. FHR pattern demonstrated Category I pattern throughout labor. AROM occurred at 1819 and was noted to be a small amount of clear fluid. Pitocin initiated for labor augmentation with a maximum infusion rate of 3mU/mL. Normal labor course. Epidural placed per maternal request. Pt progressed to c/c/+1 @ 0414 with onset of spontaneous pushing at 0417. : Normal of viable male infant on 09/05/2021 @ 0420. No nuchal cord. The was stimulated, dried, and placed skin to skin. Apgars were 9/9 at 1 and 5 minutes respectively. Pitocin administered via IV for hemostasis. The umbilical cord was allowed to stop pulsating at which time it was doubly clamped by CNM and cut by FOB. Cord blood was obtained. 3VC. Fundal massage and gentle cord traction applied for active management of the third stage. Placenta delivered spontaneously and intact at 0429. QBL 306mL. Fourth stage: Uterine fundus firm and there is no excessive bleeding. The perineum, vagina, and cervix were inspected and noted to be intact. initiated. Family bonding well. Both mother and baby were left in stable condition. Approximately 2 hours after delivery, I was contacted by the CNM director rehabilitation program who noted that patient had a delayed hemorrhage. QBL prior to entering OR was more than 1500 cc. She had received pitocin. Misoprstol 800 cg BC, methergine 0.2 mg IM, and tranexamic acid. Blood flow was heavy. Hemabate not given due to history of asthma. HCT at start of procedure was 31.6. Verbal consent for D&C, Bakri placement was given to Zara Gore CNM with Cheryl Gandhi RN, as witness. During the procedure, consent for possible hysterectomy was obtained from FOB. Findings: Atonic uterus, grossly enlarged. No retained products of note on uterine sweep. Complications: Massive transfusion with 4 units PRBC, 1 unit FFP, 1 pack of platelets, 3500 cc crystalloid. - Other Other Information/Narrative: Patient provided verbal consent for procedure and then underwent general anesthesia. Patient was positioned in dorsal lithotomy position wiht legs resting in stirrups. Kerns catheter was in place. Manual sweep of the uterus was performed with sterile gloves and uterine massage was performed without improvement in blood flow. Patient was prepped and draped in the usual sterile fashion. Cefazolin 2g IV and azithromycin 500 mg IV x1 was given for prophylaxis. D&C was performed with the banjo curette, keeping the edge of the curette flush with surgeon's fingers to avoid perforation. The cervix was grasped with ring forceps to stabilize the lower uterine segment. Bakri balloon was placed and infused with 160 cc sterile NS. A roll of vaginal packing was tied to the catheter of the Bakri balloon and was used to pack the lower uterine segment and stablize the position of the balloon. Bleeding appeared well controlled. Patient was observed for 15 minutes to confirm bleeding had slowed. QBL performed, indicting that cumulative blood loss was 3000 cc. All instruments were removed form the vagina other than the Bakri and the vaginal packing. Patient was extubated and taken to the PACU for recovery.
[2021-09-05 09:59] LABS: PT - PROTHROMBIN TIME 11.7 secs (9.9-12.6)
[2021-09-05] MEDS ORDERED: ACETAMINOPHEN 500 MG TABLET PO SCH (10:00)
[2021-09-05] MEDS: IBUPROFEN 800 MG TABLET PO SCH ×4 (11:30→23:55)
[2021-09-05] MEDS: ceFAZolin 1 GM in SODIUM CHLORIDE 0.9% MINIBAG 100 ML IV SCH ×2 (11:49→18:18)
--- NOTE | 2021-09-05 11:53 | PROVIDER PROGRESS NOTE ---
Subjective - Prog Note Date Prog Note Date: 09/05/21 Prog Note Time: 11:50 - Subjective Subjective: Patient is a 31 yo s/p this am with delayed hemorrhage. Patient has a Bakri balloon and vaginal packing in place. Output has been 55 cc in post op period. Patient denies discomfort at present. Currently NPO Objective - Vital Signs/Intake & Output Reviewed Vital Signs: Yes Vital Signs: Vital Signs x48h Temp Pulse Pulse Resp BP BP Pulse Ox 09/05/21 11:30 71 24 111/64 97 09/05/21 11:00 60 21 107/66 96 09/05/21 10:45 69 20 116/64 96 09/05/21 10:30 70 23 111/66 96 09/05/21 10:15 68 17 120/72 98 09/05/21 10:00 66 13 118/69 97 09/05/21 09:52 98.7 F 68 20 120/62 97 09/05/21 09:35 68 19 112/68 99 09/05/21 09:25 73 20 115/63 98 09/05/21 09:15 97.2 F L 72 21 113/56 L 96 09/05/21 09:10 86 20 116/48 L 96 09/05/21 09:05 86 20 101/48 L 96 09/05/21 09:00 97.7 F 85 22 96/55 L 96 09/05/21 08:55 88 18 99/37 L 95 09/05/21 08:50 88 18 99/37 L 95 09/05/21 08:45 98.4 F 88 20 104/55 L 98 Intake & Output: Intake & Output 09/02/21 09/03/21 09/04/21 09/05/21 23:59 23:59 23:59 23:59 Intake Total 0415.910 6764.1 Output Total 100 1390 Balance 1250.967 989.1 - Objective General Appearance: positive: No acute distress Respiratory: positive: No respiratory distress Cardiovascular: positive: Other (RR) Abdomen: positive: Other (soft, appropiately tender. FF about2+ above umbi per RN exam) Skin: positive: Pallor Extremities: positive: Other (SCDs in place) Neurologic/Psychiatric: positive: Oriented x3 Comments/Other: Backri draining less than 20-30 cc/hr, watery - Lab Results Fish Bones: 09/05/21 09:38 Other Labs: Lab Results x24hrs 09/05/21 09/05/21 09/05/21 Range/Units 09:38 09:38 09:38 WBC 17.7 H (4.8-10.8) x10^3/uL RBC 3.69 L (4.20-5.40) 10^6/uL Hgb 10.7 L (12.0-16.0) g/dL Hct 31.8 L (37.0-47.0) % MCV 86.2 (81.0-99.0) fL MCH 29.0 (27.0-31.0) pg MCHC 33.6 (32.0-36.0) g/dL RDW 14.8 (12.0-15.0) % Plt Count 190 (130-450) 10^3/uL MPV 9.7 (7.9-10.8) fL Neut # (Auto) 15.8 H (1.5-6.6) 10^3/uL Lymph # (Auto) 0.7 L (1.5-3.5) 10^3/uL [place] # (Auto) 0.8 (0.0-1.0) 10^3/uL Eos # (Auto) 0.2 (0.0-0.7) 10^3/uL Baso # (Auto) 0.1 (0.0-0.1) 10^3/uL Absolute Nucleated RBC 0.00 x10^3/uL Nucleated RBC % 0.0 /100WBC PT 11.7 (9.9-12.6) secs INR 1.0 (0.8-1.2) Fibrinogen 352 (220-496) mg/dL Blood Type Antibody Screen Crossmatch IS Only 09/05/21 09/04/21 09/04/21 Range/Units 06:41 17:00 17:00 WBC 16.6 H 8.9 (4.8-10.8) x10^3/uL RBC 3.62 L 4.22 (4.20-5.40) 10^6/uL Hgb 10.4 L 12.0 (12.0-16.0) g/dL Hct 31.6 L 36.6 L (37.0-47.0) % MCV 87.3 86.7 (81.0-99.0) fL MCH 28.7 28.4 (27.0-31.0) pg MCHC 32.9 32.8 (32.0-36.0) g/dL RDW 14.7 14.7 (12.0-15.0) % Plt Count 234 274 (130-450) 10^3/uL MPV 10.1 9.7 (7.9-10.8) fL Neut # (Auto) 13.6 H 6.5 (1.5-6.6) 10^3/uL Lymph # (Auto) 1.3 L 1.4 L (1.5-3.5) 10^3/uL [place] # (Auto) 1.5 H 0.7 (0.0-1.0) 10^3/uL Eos # (Auto) 0.1 0.1 (0.0-0.7) 10^3/uL Baso # (Auto) 0.1 0.0 (0.0-0.1) 10^3/uL Absolute Nucleated RBC 0.00 0.00 x10^3/uL Nucleated RBC % 0.0 0.0 /100WBC PT (9.9-12.6) secs INR (0.8-1.2) Fibrinogen (220-496) mg/dL Blood Type O POSITIVE Antibody Screen NEGATIVE Crossmatch IS Only See Detail Assessment/Plan - Problem List (1) hemorrhage Impression: POD#0 s/p D&C and Bakri placement HCT stable at 31 s/p transfusion with: 3500 cc crystalloid 4 units PRBC 1 unit FFP 1 pack plts BAKRI BALLOON: Infused with 160 cc NS VSS and Bakri remain in place with moderate drainage and no bleeding around balloon. Will keep balloon in place for 24 hours or when drainage has stopped over [address] Ricks should balloon fall out or bleeding increases Dr. Ricks will drain Bakri- needs to be reduced in incremental volumes to avoid repeat hemorrhage *VAGINAL PACKING IN PLACE* : should be fixed to Barki catheter. If balloon falls out and packing is not removed, provider will need to extract. *PLEASE CONFIRM REMOVAL OF PACKING ONCE BALLOON REMOVED BLOOD PRODUCTS: -Large volume transfusion as noted above. -HCT stable over two prior assessments -Fibrinogen currently 352, will recheck at 14:00. If falls below 300, will need unit of cryoppt (fibrinogen levels usually markedly higher than normal in peripartum period) -If HCT stable, will given iron infusion and B12 prior to DC UTEROTONICS: -Currently on pitocin. Continue until current bag is complete and then discontinue -Starting scheduled methergine 0.2 mg o Q6H for 4 doses ID PPX: Excessive uterine manipulation with foreign bod(ies) in place -Cefazolin 1g IV Q8h and azithromycin 500 mg po Q24H while Bakri in place (orders confirmed to be active) VTE PPX: SCDs in place. -Will need lovenox 40 mg at 12-24 hours post hemorrhage event. OB MD to assess and order when appropriate FEN: will defer to ICU team. Should be ok to advance diet at lunchtime. -Recommend checking ionized calcium given large volume transfusion and replete with calcium gluconate as indicated Discussed the possibility of hysterectomy in the event of a repeat hemorrhage. Patient would prefer to avoid but consents in the event of a life saving emergency. Mother of patient observed. Cont in-patient care
[2021-09-05] MEDS: DOCUSATE SODIUM 100 MG CAPSULE PO SCH ×2 (12:30→21:09)
[2021-09-05] MEDS: METHYLERGONOVINE 0.2 MG/ML VIAL PO SCH ×3 (12:31→23:56)
[2021-09-05] MEDS: CHERRY SYRUP 10 ML UDC PO SCH ×3 (12:31→23:56)
--- NOTE | 2021-09-05 13:34 | HISTORY & PHYSICAL EXAMINATION ---
Chief Complaint - Chief Complaint Chief Complaint: hemorrhage History of Present Illness - Admitted From Admitted From:: OBGYN - History Obtained From History obtained from: Patient - History of Present Illness HPI Comment/Other: Roly is a 31 year old female with no significant past medical history who gave vaginally at 0420 this morning to her third child. She was initially stable after but then began having diffuse uterine bleeding a few hours later. Baby boy is stable. She reports having heavy bleeding after her second but no known history of familial blood disorder. 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 She does not report a history of heavy periods or prolonged epistaxis. In addition to the baby boy, she has 2 daughters aged 11 and 2 that were born via vaginal . She lives with her significant other in house in [place]. She quit smoking tobacco a few years ago but was never a consistent smoker - more so of a social smoker. She also reports social alcohol drinking but stopped when she found out she was . No reported recreational drug use except for occasional marijuana gummies but she states she gets paranoid when using marijuana so does not use it that often. She occasionally took TUMS and [id number] pepcid for breakthrough heartburn throughout but does not report any additional long-term medications. 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 Living arrangement: At home Living Situation: With spouse/s.o. Social History Notes: Former social smoker, quit in the last few years. Also a social drinker who stopped drinking once she found out she was . Occasional marijuana use but she reports it makes her paranoid so limited use. Works in [employer] at [employer]. - Substance History Use: Uses substance without health or social issues: NONE Abuse: Recurrent use of substance despite neg consequences: NONE Dependence: Experiences withdrawal or developed tolerances: NONE - POLST Patient has POLST: No POLST Status: Full Code Meds/Allgy - Home Medications Home Medications: Ambulatory Orders Medication Instructions Recorded Confirmed No Known Home Medications 04/06/21 04/06/21 - Allergies Allergies/Adverse Reactions: Allergies Allergy/AdvReac Type Severity Reaction Status Date / Time No Known Drug Allergies Allergy Verified 09/04/21 19:17 Review of Systems - Constitutional Constitutional: reports: Fatigue. denies: Fever, Chills - Eyes Eyes: denies: Blurred vision, Vision loss, Dipolpia - Ears, Nose & Throat Ears, Nose & Throat: denies: Nasal discharge, Nasal congestion, Sore throat - Cardiovascular Cariovascular: denies: Palpitations, Chest pain, Exertional dyspnea - Respiratory Respiratory: denies: Cough, Sputum production, Hemoptysis, Pleuritic pain - Gastrointestinal Gastrointestinal: denies: Abdominal pain, Constipation, Diarrhea, Nausea - Genitourinary Genitourinary: denies: Dysuria, Hematuria - Musculoskeletal Musculoskeletal: denies: Muscle pain, Muscle aches, Stiffness, Joint pain - Integumentary Integumentary: denies: Rash, Pruritis - Neurological Neurological: denies: Focal weakness, Headache, Numbness - Hematologic/Lymphatic Hematologic/Lymphatic: denies: Bruising, Petechiae - All Other Systems All Other Systems: reports: Reviewed and negative Prior Level of Functionality: Fully independent without assistance with daily living activities. Walks without assistance. Exam - Vital Signs Reviewed Vital Signs: Yes Vital Signs: Vital Signs x48h Temp Pulse Pulse Resp BP BP Pulse Ox 09/05/21 11:30 71 24 111/64 97 09/05/21 11:00 60 21 107/66 96 09/05/21 10:45 69 20 116/64 96 09/05/21 10:30 70 23 111/66 96 09/05/21 10:15 68 17 120/72 98 09/05/21 10:00 66 13 118/69 97 09/05/21 09:52 37.1 C 68 20 120/62 97 09/05/21 09:35 68 19 112/68 99 09/05/21 09:25 73 20 115/63 98 09/05/21 09:15 36.2 C L 72 21 113/56 L 96 09/05/21 09:10 86 20 116/48 L 96 09/05/21 09:05 86 20 101/48 L 96 09/05/21 09:00 36.5 C 85 22 96/55 L 96 09/05/21 08:55 88 18 99/37 L 95 09/05/21 08:50 88 18 99/37 L 95 09/05/21 08:45 36.9 C 88 20 104/55 L 98 - Physical Exam General Appearance: positive: No acute distress Eyes Bilateral: positive: PERRL, EOMI ENT: positive: ENT inspection nml Neck: positive: Nml inspection, No JVD Respiratory: positive: Chest non-tender, No respiratory distress, Breath sounds nml Cardiovascular: positive: Regular rate & rhythm, No murmur, No gallop Abdomen: positive: Non-tender Skin: positive: Color nml, No rash Extremities: positive: Non-tender Neurologic/Psychiatric: positive: Oriented x3 Conclusion/Plan - Problem List (1) hemorrhage Conclusion/Plan: Patient is stable and awake and alert. HCT stable at 31 s/p transfusion with 3500 cc crystalloid, 4 units PRBC, 1 unit FFP, 1 pack plts She has a Bakri balloon that is inserted. It was infused with 160 cc NS VSS and Bakri remain in place with moderate drainage and no bleeding around balloon. Will keep balloon in place for 24 hours or when drainage has stopped over 2 hours. We will call Dr. Ricks should balloon fall out or bleeding increases. Dr. Ricks will drain Bakri- needs to be reduced in incremental volumes to avoid repeat hemorrhage. *VAGINAL PACKING IN PLACE*: should be fixed to Barki catheter. If balloon falls out and packing is not removed, it will need to bed extracted. BLOOD PRODUCTS: -Large volume transfusion as noted above. -HCT stable over two prior assessments -Fibrinogen currently 352, will recheck at 14:00. If falls below 300, will need unit of cryoppt -If HCT stable, will given iron infusion and B12 prior to DC UTEROTONICS: -Currently on pitocin. Continue until current bag is complete and then discontinue -Starting scheduled methergine 0.2 mg o Q6H for 4 doses ID PPX: Excessive uterine manipulation with foreign bod(ies) in place -Cefazolin 1g IV Q8h and azithromycin 500 mg po Q24H while Bakri in place VTE PPX: SCDs in place. -We will stop the lovenox and switch to aspirin and at 12-24 hours post hemorrhage event. OB MD to assess and order when appropriate FEN: will defer to ICU team. Should be ok to advance diet at lunchtime. -Recommend checking ionized calcium given large volume transfusion and replete with calcium gluconate as indicated - Lab Results Lab results reviewed: Yes Fish Bones: 09/05/21 09:38
[2021-09-05 14:05] LABS: BASOPHILS # (AUTO) 0.1 10^3/uL (0.0-0.1); BASOPHILS % (AUTO) 0.4 %; EOSINOPHILS # (AUTO) 0.2 10^3/uL (0.0-0.7); EOSINOPHILS % (AUTO) 0.8 %; HCT - HEMATOCRIT 31.2 % (37.0-47.0); LYMPHOCYTES # (AUTO) 1.1 10^3/uL (1.5-3.5); LYMPHOCYTES % (AUTO) 5.6 %; MEAN CORPUSCULAR HEMOGLOBIN 29.9 pg (27.0-31.0); MEAN CORPUSCULAR HGB CONC 35.3 g/dL (32.0-36.0); MEAN CORPUSCULAR VOLUME 84.8 fL (81.0-99.0); MEAN PLATELET VOLUME 9.9 fL (7.9-10.8); MONOCYTES % (AUTO) 4.9 %; NEUTROPHILS # (AUTO) 17.5 10^3/uL (1.5-6.6); NEUTROPHILS % (AUTO) 87.7 %; PLT - PLATELET COUNT 190 10^3/uL (130-450); RED BLOOD COUNT 3.68 10^6/uL (4.20-5.40); RED CELL DISTRIBUTION WIDTH 14.6 % (12.0-15.0)
[2021-09-05 14:10] LABS: CALCIUM, IONIZED 1.08 mmol/L (1.15-1.33); VBG PH 7.449 (7.31-7.41)
[2021-09-05 14:15] LABS: CREATININE 0.5 mg/dL (0.4-1.0)
--- NOTE | 2021-09-05 14:29 | CONSULTATION NOTE ---
Chief Complaint - Chief Complaint Chief Complaint: hemorrhage History of Present Illness - Admitted From Admitted From:: [facility] - History Obtained From History obtained from: Patient and Dr. Ricks - History of Present Illness HPI Comment/Other: Roly is a 31 year old female with no significant past medical history who gave vaginally at 0420 this morning to her third child. She was initially stable after but then began having diffuse uterine bleeding a few hours later. Baby boy is stable. She reports having heavy bleeding after her second but no known history of familial blood disorder. 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 She does not report a history of heavy periods or prolonged epistaxis. In addition to the baby boy, she has 2 daughters aged 11 and 2 that were born via vaginal . She lives with her significant other in house in [place]. She quit smoking tobacco a few years ago but was never a consistent smoker - more so of a social smoker. She also reports social alcohol drinking but stopped when she found out she was . No reported recreational drug use except for occasional marijuana gummies but she states she gets paranoid when using marijua na so does not use it that often. She occasionally took TUMS and [id number] pepcid for breakthrough heartburn throughout but does not report any additional long-term medications. 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 Living arrangement: At home Living Situation: With spouse/s.o. Social History Notes: Former social smoker, quit in the last few years. Also a social drinker who stopped drinking once she found out she was . Occasional marijuana use but she reports it makes her paranoid so limited use. Works in [employer] services at the [employer]. - Substance History Use: Uses substance without health or social issues: NONE Abuse: Recurrent use of substance despite neg consequences: NONE Dependence: Experiences withdrawal or developed tolerances: NONE - POLST Patient has POLST: No POLST Status: Full Code Meds/Allgy - Home Medications Home Medications: Ambulatory Orders Medication Instructions Recorded Confirmed No Known Home Medications 04/06/21 04/06/21 - Allergies Allergies/Adverse Reactions: Allergies Allergy/AdvReac Type Severity Reaction Status Date / Time No Known Drug Allergies Allergy Verified 09/04/21 19:17 Review of Systems - Constitutional Constitutional: reports: Fatigue. denies: Fever, Chills - Eyes Eyes: denies: Blurred vision, Vision loss, Dipolpia - Ears, Nose & Throat Ears, Nose & Throat: denies: Nasal discharge, Nasal congestion, Sore throat - Cardiovascular Cariovascular: denies: Palpitations, Chest pain, Lightheadedness - Respiratory Respiratory: denies: Cough, Wheezing, Hemoptysis, SOB at rest, SOB with exertion, Pleuritic pain - Gastrointestinal Gastrointestinal: reports: Reflux/heartburn. denies: Abdominal pain, Constipation, Diarrhea, Black stools, Bloody stools, Nausea, Vomiting - Genitourinary Genitourinary: denies: Dysuria, Hematuria - Musculoskeletal Musculoskeletal: denies: Muscle pain, Muscle aches, Joint pain - Integumentary Integumentary: denies: Rash, Pruritis - Neurological Neurological: denies: Focal weakness, Headache, Numbness - All Other Systems All Other Systems: reports: Reviewed and negative Exam - Vital Signs Reviewed Vital Signs: Yes Vital Signs: Vital Signs x48h Temp Pulse Pulse Resp BP BP Pulse Ox 09/05/21 13:00 75 14 114/67 98 09/05/21 12:00 75 21 113/75 97 09/05/21 11:30 71 24 111/64 97 09/05/21 11:00 60 21 107/66 96 09/05/21 10:45 69 20 116/64 96 09/05/21 10:30 70 23 111/66 96 09/05/21 10:15 68 17 120/72 98 09/05/21 10:00 66 13 118/69 97 09/05/21 09:52 37.1 C 68 20 120/62 97 12/08/21 09:35 68 19 112/68 99 09/05/21 09:25 73 20 115/63 98 09/05/21 09:15 36.2 C L 72 21 113/56 L 96 09/05/21 09:10 86 20 116/48 L 96 09/05/21 09:05 86 20 101/48 L 96 09/05/21 09:00 36.5 C 85 22 96/55 L 96 09/05/21 08:55 88 18 99/37 L 95 09/05/21 08:50 88 18 99/37 L 95 09/05/21 08:45 36.9 C 88 20 104/55 L 98 - Physical Exam General Appearance: positive: No acute distress Eyes Bilateral: positive: PERRL, EOMI ENT: positive: ENT inspection nml Neck: positive: Thyroid nml, No JVD, Trachea midline Respiratory: positive: Chest non-tender, No respiratory distress, Breath sounds nml Cardiovascular: positive: Regular rate & rhythm, No murmur, No gallop Abdomen: positive: No organomegaly, Tenderness Skin: positive: Color nml, No rash, Warm Extremities: positive: Non-tender Neurologic/Psychiatric: positive: Oriented x3, CN's nml (2-12) Conclusion/Plan - Problem List (1) hemorrhage Conclusion/Plan: Patient is stable and awake and alert. HCT stable at 31 s/p transfusion with 3500 cc crystalloid, 4 units PRBC, 1 unit FFP, 1 pack plts She has a Bakri balloon that is inserted. It was infused with 160 cc NS VSS and Bakri remain in place with moderate drainage and no bleeding around balloon. Will keep balloon in place for 24 hours or when drainage has stopped over 2 hours. We will call Dr. Ricks should balloon fall out or bleeding increases. Dr. Ricks will drain Bakri - needs to be reduced in incremental volumes to avoid repeat hemorrhage. Vaginal packing in place: should be fixed to Barki catheter. If balloon falls out and packing is not removed, it will need to be extracted. Contact OB MD for extraction. We are concerned about the development of DIC so we will continue to monitor her fibrinogen, PTT and INR and treat with PRBCs and FFP as needed. We will continue to monitor her overnight. Dr. Ricks and Dr. Gallegos discussed initiating Lasix due to fluid overload however Dr. Gallegos decided that Lasix is not necessary at this time as the patient is currently urinating 1000mL per hour on her own. We spoke with pharmacy about potential issues with and the current medications she is on. The only caution is with the azithromycin she is currently taking but it is not an absolute contraindication so she may resume breast-feeding if she would like. Blood Products: -Large volume transfusion as noted above. -HCT stable over two prior assessments -Fibrinogen currently 352, and 377 at 14:00 If falls below 300, will need unit of cryoppt -If HCT stable, will given iron infusion and B12 prior to DC Uterotonics: -Currently on pitocin. Continue until current bag is complete and then discon tinue -Starting scheduled methergine 0.2 mg Q6H for 4 doses ID ppx: Excessive uterine manipulation with foreign bod(ies) in place -Cefazolin 1g IV Q8h and azithromycin 500 mg po Q24H while Bakri in place VTE ppx: SCDs in place. -Will need lovenox 40 mg at 12-24 hours post hemorrhage event. OB MD to assess and order when appropriate FEN: -We will monitor ionized calcium given large volume transfusion and replete with calcium gluconate as indicated (2) Leukocytosis Conclusion/Plan: Patient's WBC has progressively increased while at the hospital. It is currently at 20K with left shift. Patient is afebrile but edematous that is likely due to fluid resuscitation. She does not meet SIRS criteria so it is likley this leukocytosis is stress related in regards to being in a state. She was started on azithromycin 500mg PO and cefazolin while the Bakri is in place for infection prophylaxis. We will continue to monitor her WBC and neutrophils. We will also monitor for signs of systemic illness. - Lab Results Lab results reviewed: Yes Fish Bones: 09/05/21 14:00 09/05/21 14:00
[2021-09-05] MEDS ORDERED: SODIUM CHLORIDE FLUSH 0.9% 10 ML SYRINGE IVP PRN (15:54)
--- NOTE | 2021-09-05 15:59 | ANESTHESIA POST OP EVALUATION ---
Anesthesia Post Eval - Post Anesthesia Eval Vitals: Last Vital Signs Temp 37.1 C 09/05/21 09:52 Pulse 75 09/05/21 13:00 Resp 14 09/05/21 13:00 BP 114/67 09/05/21 13:00 Pulse Ox 98 09/05/21 13:00 CV Function Including HR & BP: Stable Pain Control: Satisfactory Nausea & Vomiting: Negative Mental Status: Baseline Respiratory Status: Airway Patent Hydration Status: Satisfactory Anesthesia Complications: None
[2021-09-05] MEDS ORDERED: CALCIUM GLUCONATE 1,000 MG in SODIUM CHLORIDE 0.9% 50 ML IV ONE ×2 (16:15→17:30)
[2021-09-05] MEDS: SODIUM CHLORIDE FLUSH 0.9% 10 ML SYRINGE IVP SCH (17:09)
--- NOTE | 2021-09-05 17:12 | PROVIDER PROGRESS NOTE ---
Subjective - Prog Note Date Prog Note Date: 09/05/21 Prog Note Time: 17:09 - Subjective Subjective: Patient appears to be doing well. Bakri output is decreasing. H/H stable and fibrinogen increasing. GEN: NAD CV: RRR RESP: nl effort, CTAB ABD: FF about 3+ above umbi and appropriately tender to palp. EXT: WWP NEURO: A&O Will plan to start decompressing Bakri in am. Will start lovenox at 24 hours Will need to have epidural removed prior to starting lovenox -Will discuss with OB RN for removal Objective - Vital Signs/Intake & Output Vital Signs: Vital Signs x48h Temp Pulse Pulse Resp BP BP Pulse Ox 09/05/21 16:00 71 23 114/61 99 09/05/21 13:00 75 14 114/67 98 09/05/21 12:00 75 21 113/75 97 09/05/21 11:30 71 24 111/64 97 09/05/21 11:00 60 21 107/66 96 09/05/21 10:45 69 20 116/64 96 09/05/21 10:30 70 23 111/66 96 09/05/21 10:15 68 17 120/72 98 09/05/21 10:00 66 13 118/69 97 09/05/21 09:52 98.7 F 68 20 120/62 97 09/05/21 09:35 68 19 112/68 99 09/05/21 09:25 73 20 115/63 98 09/05/21 09:15 97.2 F L 72 21 113/56 L 96 09/05/21 09:10 86 20 116/48 L 96 Intake & Output: Intake & Output 09/02/21 09/03/21 09/04/21 09/05/21 23:59 23:59 23:59 23:59 Intake Total 1696.516 3610.1 Output Total 100 2276 Balance 1250.967 203.1 - Lab Results Fish Bones: 09/05/21 14:00 09/05/21 14:00 Other Labs: Lab Results x24hrs 09/05/21 09/05/21 09/05/21 Range/Units 16:13 14:00 14:00 WBC (4.8-10.8) x10^3/uL RBC (4.20-5.40) 10^6/uL Hgb (12.0-16.0) g/dL Hct (37.0-47.0) % MCV (81.0-99.0) fL MCH (27.0-31.0) pg MCHC (32.0-36.0) g/dL RDW (12.0-15.0) % Plt Count (130-450) 10^3/uL MPV (7.9-10.8) fL Neut # (Auto) (1.5-6.6) 10^3/uL Lymph # (Auto) (1.5-3.5) 10^3/uL [place] # (Auto) (0.0-1.0) 10^3/uL Eos # (Auto) (0.0-0.7) 10^3/uL Baso # (Auto) (0.0-0.1) 10^3/uL Absolute Nucleated RBC x10^3/uL Nucleated RBC % /100WBC PT (9.9-12.6) secs INR (0.8-1.2) Fibrinogen (220-496) mg/dL VBG pH 7.449 H (7.31-7.41) Ionized Calcium 1.08 L (1.15-1.33) mmol/L Sodium 134 L (135-145) mmol/L Potassium 4.0 (3.5-5.0) mmol/L Chloride 104 (101-111) mmol/L Carbon Dioxide 20 L (21-32) mmol/L Anion Gap 10.0 (6-13) BUN 10 (6-20) mg/dL Creatinine 0.5 (0.4-1.0) mg/dL Estimated GFR (MDRD) 144 (>89) Glucose 110 H (70-100) mg/dL Calcium 8.0 L (8.5-10.3) mg/dL Troponin I High Sens 4.4 (2.3-14.8) ng/L Nasal Screen MRSA (PCR) (NEGATIVE) SARS-CoV-2 (PCR) Blood Type Antibody Screen Crossmatch IS Only 09/05/21 09/05/21 09/05/21 Range/Units 14:00 14:00 11:10 WBC 20.0 H (4.8-10.8) x10^3/uL RBC 3.68 L (4.20-5.40) 10^6/uL Hgb 11.0 L (12.0-16.0) g/dL Hct 31.2 L (37.0-47.0) % MCV 84.8 (81.0-99.0) fL MCH 29.9 (27.0-31.0) pg MCHC 35.3 (32.0-36.0) g/dL RDW 14.6 (12.0-15.0) % Plt Count 190 (130-450) 10^3/uL MPV 9.9 (7.9-10.8) fL Neut # (Auto) 17.5 H (1.5-6.6) 10^3/uL Lymph # (Auto) 1.1 L (1.5-3.5) 10^3/uL [place] # (Auto) 1.0 (0.0-1.0) 10^3/uL Eos # (Auto) 0.2 (0.0-0.7) 10^3/uL Baso # (Auto) 0.1 (0.0-0.1) 10^3/uL Absolute Nucleated RBC 0.00 x10^3/uL Nucleated RBC % 0.0 /100WBC PT (9.9-12.6) secs INR (0.8-1.2) Fibrinogen 377 (220-496) mg/dL VBG pH (7.31-7.41) Ionized Calcium (1.15-1.33) mmol/L Sodium (135-145) mmol/L Potassium (3.5-5.0) mmol/L Chloride (101-111) mmol/L Carbon Dioxide (21-32) mmol/L Anion Gap (6-13) BUN (6-20) mg/dL Creatinine (0.4-1.0) mg/dL Estimated GFR (MDRD) (>89) Glucose (70-100) mg/dL Calcium (8.5-10.3) mg/dL Troponin I High Sens (2.3-14.8) ng/L Nasal Screen MRSA (PCR) NEGATIVE (NEGATIVE) SARS-CoV-2 (PCR) Blood Type Antibody Screen Crossmatch IS Only 09/05/21 09/05/21 09/05/21 Range/Units 11:10 09:38 09:38 WBC 17.7 H (4.8-10.8) x10^3/uL RBC 3.69 L (4.20-5.40) 10^6/uL Hgb 10.7 L (12.0-16.0) g/dL Hct 31.8 L (37.0-47.0) % MCV 86.2 (81.0-99.0) fL MCH 29.0 (27.0-31.0) pg MCHC 33.6 (32.0-36.0) g/dL RDW 14.8 (12.0-15.0) % Plt Count 190 (130-450) 10^3/uL MPV 9.7 (7.9-10.8) fL Neut # (Auto) 15.8 H (1.5-6.6) 10^3/uL Lymph # (Auto) 0.7 L (1.5-3.5) 10^3/uL [place] # (Auto) 0.8 (0.0-1.0) 10^3/uL Eos # (Auto) 0.2 (0.0-0.7) 10^3/uL Baso # (Auto) 0.1 (0.0-0.1) 10^3/uL Absolute Nucleated RBC 0.00 x10^3/uL Nucleated RBC % 0.0 /100WBC PT 11.7 (9.9-12.6) secs INR 1.0 (0.8-1.2) Fibrinogen (220-496) mg/dL VBG pH (7.31-7.41) Ionized Calcium (1.15-1.33) mmol/L Sodium (135-145) mmol/L Potassium (3.5-5.0) mmol/L Chloride (101-111) mmol/L Carbon Dioxide (21-32) mmol/L Anion Gap (6-13) BUN (6-20) mg/dL Creatinine (0.4-1.0) mg/dL Estimated GFR (MDRD) (>89) Glucose (70-100) mg/dL Calcium (8.5-10.3) mg/dL Troponin I High Sens (2.3-14.8) ng/L Nasal Screen MRSA (PCR) (NEGATIVE) SARS-CoV-2 (PCR) NOT DETECTED Blood Type Antibody Screen Crossmatch IS Only 09/05/21 09/05/21 09/04/21 Range/Units 09:38 06:41 17:00 WBC 16.6 H (4.8-10.8) x10^3/uL RBC 3.62 L (4.20-5.40) 10^6/uL Hgb 10.4 L (12.0-16.0) g/dL Hct 31.6 L (37.0-47.0) % MCV 87.3 (81.0-99.0) fL MCH 28.7 (27.0-31.0) pg MCHC 32.9 (32.0-36.0) g/dL RDW 14.7 (12.0-15.0) % Plt Count 234 (130-450) 10^3/uL MPV 10.1 (7.9-10.8) fL Neut # (Auto) 13.6 H (1.5-6.6) 10^3/uL Lymph # (Auto) 1.3 L (1.5-3.5) 10^3/uL [place] # (Auto) 1.5 H (0.0-1.0) 10^3/uL Eos # (Auto) 0.1 (0.0-0.7) 10^3/uL Baso # (Auto) 0.1 (0.0-0.1) 10^3/uL Absolute Nucleated RBC 0.00 x10^3/uL Nucleated RBC % 0.0 /100WBC PT (9.9-12.6) secs INR (0.8-1.2) Fibrinogen 352 (220-496) mg/dL VBG pH (7.31-7.41) Ionized Calcium (1.15-1.33) mmol/L Sodium (135-145) mmol/L Potassium (3.5-5.0) mmol/L Chloride (101-111) mmol/L Carbon Dioxide (21-32) mmol/L Anion Gap (6-13) BUN (6-20) mg/dL Creatinine (0.4-1.0) mg/dL Estimated GFR (MDRD) (>89) Glucose (70-100) mg/dL Calcium (8.5-10.3) mg/dL Troponin I High Sens (2.3-14.8) ng/L Nasal Screen MRSA (PCR) (NEGATIVE) SARS-CoV-2 (PCR) Blood Type O POSITIVE Antibody Screen NEGATIVE Crossmatch IS Only See Detail 09/04/21 Range/Units 17:00 WBC 8.9 (4.8-10.8) x10^3/uL RBC 4.22 (4.20-5.40) 10^6/uL Hgb 12.0 (12.0-16.0) g/dL Hct 36.6 L (37.0-47.0) % MCV 86.7 (81.0-99.0) fL MCH 28.4 (27.0-31.0) pg MCHC 32.8 (32.0-36.0) g/dL RDW 14.7 (12.0-15.0) % Plt Count 274 (130-450) 10^3/uL MPV 9.7 (7.9-10.8) fL Neut # (Auto) 6.5 (1.5-6.6) 10^3/uL Lymph # (Auto) 1.4 L (1.5-3.5) 10^3/uL [place] # (Auto) 0.7 (0.0-1.0) 10^3/uL Eos # (Auto) 0.1 (0.0-0.7) 10^3/uL Baso # (Auto) 0.0 (0.0-0.1) 10^3/uL Absolute Nucleated RBC 0.00 x10^3/uL Nucleated RBC % 0.0 /100WBC PT (9.9-12.6) secs INR (0.8-1.2) Fibrinogen (220-496) mg/dL VBG pH (7.31-7.41) Ionized Calcium (1.15-1.33) mmol/L Sodium (135-145) mmol/L Potassium (3.5-5.0) mmol/L Chloride (101-111) mmol/L Carbon Dioxide (21-32) mmol/L Anion Gap (6-13) BUN (6-20) mg/dL Creatinine (0.4-1.0) mg/dL Estimated GFR (MDRD) (>89) Glucose (70-100) mg/dL Calcium (8.5-10.3) mg/dL Troponin I High Sens (2.3-14.8) ng/L Nasal Screen MRSA (PCR) (NEGATIVE) SARS-CoV-2 (PCR) Blood Type Antibody Screen Crossmatch IS Only
[2021-09-05] MEDS ORDERED: DOCUSATE SODIUM 100 MG CAPSULE PO SCH (21:00)
[2021-09-05 21:05] LABS: BASOPHILS # (AUTO) 0.1 10^3/uL (0.0-0.1); BASOPHILS % (AUTO) 0.4 %; EOSINOPHILS % (AUTO) 0.1 %; HCT - HEMATOCRIT 29.7 % (37.0-47.0); HGB - HEMOGLOBIN 10.3 g/dL (12.0-16.0); LYMPHOCYTES # (AUTO) 1.9 10^3/uL (1.5-3.5); LYMPHOCYTES % (AUTO) 10.5 %; MEAN CORPUSCULAR HEMOGLOBIN 29.3 pg (27.0-31.0); MEAN CORPUSCULAR HGB CONC 34.7 g/dL (32.0-36.0); MEAN CORPUSCULAR VOLUME 84.4 fL (81.0-99.0); MONOCYTES # (AUTO) 1.3 10^3/uL (0.0-1.0); MONOCYTES % (AUTO) 7.2 %; NEUTROPHILS # (AUTO) 14.5 10^3/uL (1.5-6.6); NEUTROPHILS % (AUTO) 81.1 %; PLT - PLATELET COUNT 201 10^3/uL (130-450); RED BLOOD COUNT 3.52 10^6/uL (4.20-5.40); RED CELL DISTRIBUTION WIDTH 14.9 % (12.0-15.0); WHITE BLOOD COUNT 17.9 x10^3/uL (4.8-10.8)
[2021-09-05 21:11] LABS: IONIZED CALCIUM IF INDICATED YES
[2021-09-05 21:15] LABS: CALCIUM, IONIZED 1.08 mmol/L (1.15-1.33); VBG PH 7.478 (7.31-7.41)
[2021-09-06] MEDS: SODIUM CHLORIDE FLUSH 0.9% 10 ML SYRINGE IVP SCH ×2 (01:30→08:48)
[2021-09-06] MEDS: ceFAZolin 1 GM in SODIUM CHLORIDE 0.9% MINIBAG 100 ML IV SCH ×3 (01:31→18:01)
[2021-09-06 04:22] LABS: BASOPHILS # (AUTO) 0.1 10^3/uL (0.0-0.1); BASOPHILS % (AUTO) 0.3 %; EOSINOPHILS # (AUTO) 0.1 10^3/uL (0.0-0.7); EOSINOPHILS % (AUTO) 0.4 %; HCT - HEMATOCRIT 28.7 % (37.0-47.0); HGB - HEMOGLOBIN 9.6 g/dL (12.0-16.0); LYMPHOCYTES # (AUTO) 1.8 10^3/uL (1.5-3.5); LYMPHOCYTES % (AUTO) 12.1 %; MEAN CORPUSCULAR HEMOGLOBIN 28.8 pg (27.0-31.0); MEAN CORPUSCULAR HGB CONC 33.4 g/dL (32.0-36.0); MEAN CORPUSCULAR VOLUME 86.2 fL (81.0-99.0); MEAN PLATELET VOLUME 9.9 fL (7.9-10.8); MONOCYTES # (AUTO) 1.2 10^3/uL (0.0-1.0); MONOCYTES % (AUTO) 8.1 %; NEUTROPHILS # (AUTO) 11.4 10^3/uL (1.5-6.6); PLT - PLATELET COUNT 182 10^3/uL (130-450); RED BLOOD COUNT 3.33 10^6/uL (4.20-5.40); WHITE BLOOD COUNT 14.7 x10^3/uL (4.8-10.8)
[2021-09-06 04:25] LABS: CALCIUM, IONIZED 1.07 mmol/L (1.15-1.33); VBG PH 7.433 (7.31-7.41)
[2021-09-06 04:34] LABS: MAGNESIUM 1.7 mg/dL (1.7-2.8); PHOSPHORUS 3.2 mg/dL (2.5-4.6)
[2021-09-06] MEDS ORDERED: CALCIUM GLUCONATE 1,000 MG in SODIUM CHLORIDE 0.9% 50 ML IV ONE (06:00)
[2021-09-06] MEDS ORDERED: MAGNESIUM OXIDE 400 MG TABLET PO ONE (06:00)
[2021-09-06] MEDS: ACETAMINOPHEN 500 MG TABLET PO SCH ×3 (06:02→21:56)
[2021-09-06] MEDS: IBUPROFEN 800 MG TABLET PO SCH ×4 (06:03→23:27)
[2021-09-06] MEDS: METHYLERGONOVINE 0.2 MG/ML VIAL PO SCH (06:04)
[2021-09-06] MEDS: CHERRY SYRUP 10 ML UDC PO SCH (06:04)
[2021-09-06] MEDS ORDERED: BENZOCAINE/MENTHOL LOZENGE MM PRN (06:11)
[2021-09-06] MEDS: DOCUSATE SODIUM 100 MG CAPSULE PO SCH ×2 (08:25→21:56)
[2021-09-06] MEDS ORDERED: SERTRALINE 50 MG TABLET PO SCH (09:00)
[2021-09-06] MEDS ORDERED: AZITHROMYCIN 250 MG TABLET PO SCH (09:00)
--- NOTE | 2021-09-06 11:34 | PROVIDER PROGRESS NOTE ---
Subjective - Prog Note Date Prog Note Date: 09/06/21 Prog Note Time: 11:30 - Subjective Pt reports feeling: Improved Subjective: Patient is Day 2 . She is feeling and looking much better today. She is holding her and had a successful breast-feeding session this morning. We again recommended she follow up with a learning facilitator to determine the etiology of her excessive bleeding - we will notify her PCP about this and let them manage the referral. She still has the Bakri in place with hopes of this being removed sometime today by OB. She is still edematous but this is likely due to IV fluids and fluid overload. Since she is currently stable and labs are improving, we will hand off care back to OB. Current Medications - Current Medications Current Medications: Active Medications Acetaminophen (Acetaminophen 500 Mg Tablet) 1,000 mg PO Q8H [facility] Last Admin: 09/06/21 06:02 Dose: 1,000 mg Documented by: Azithromycin (Azithromycin 250 Mg Tablet) 500 mg PO DAILY [facility] Last Admin: 09/06/21 08:26 Dose: 500 mg Documented by: Docusate Sodium (Docusate Sodium 100 Mg Capsule) 100 mg PO BID [facility] Last Admin: 09/06/21 08:25 Dose: 100 mg Documented by: Hydrocortisone (Hydrocortisone 1% Cream 28 Gm Tube) 1 applic OK QID PRN PRN Reason: Hemorrhoids Oxytocin/Sodium Chloride (Pitocin/Sodium Chloride) 500 mls @ 999 mls/hr IV PRN PRN; Protocol PRN Reason: POST- HEMORR PREVENTION Stop: 09/09/21 16:58 Last Titration: 09/05/21 21:00 Dose: Infused Documented by: Cefazolin Sodium 1 gm/ Sodium (Chloride) 100 mls @ 200 mls/hr IV Q8H [facility] Last Infusion: 09/06/21 10:10 Dose: Infused Documented by: Ibuprofen (Ibuprofen 800 Mg Tablet) 800 mg PO Q6H [facility] Last Admin: 09/06/21 06:03 Dose: 800 mg Documented by: Misoprostol (Misoprostol 200 Mcg Tablet) 800 mcg BC .ONCE PRN PRN Reason: Step 3: Hemorrhage protocol Stop: 09/09/21 16:58 Last Admin: 09/05/21 06:07 Dose: 800 mcg Documented by: Ondansetron HCl (Ondansetron Odt 4 Mg Tablet) 4 mg TL Q4H PRN PRN Reason: Nausea / Vomiting Oxycodone HCl (Oxycodone 5 Mg Tablet) 5 mg PO Q4HR PRN PRN Reason: PAIN Sertraline HCl (Sertraline 50 Mg Tablet) 100 mg PO DAILY [facility] Last Admin: 09/06/21 08:43 Dose: Not Given Documented by: Simethicone (Simethicone Chew 80 Mg Tablet) 80 mg PO TID PRN PRN Reason: Gas Sodium Chloride (Sodium Chloride Flush 0.9% 10 Ml Syringe) 10 ml IVP 0100,0900,1700 [facility] Last Admin: 09/06/21 08:48 Dose: 10 ml Documented by: Sodium Chloride (Sodium Chloride Flush 0.9% 10 Ml Syringe) 10 ml IVP PRN PRN PRN Reason: NEEDED PER PROVIDER ORDERS Throat Lozenges (Benzocaine/Menthol Lozenge) 1 lozenge MM Q2HR PRN PRN Reason: Throat pain Witch Rosa Elena/Glycerin (Witch Rosa Elena/Glycerin 1 Pad) 1 pad TOP QID PRN PRN Reason: ITCHING No Known Home Medications 04/06/21 Objective - Vital Signs/Intake & Output Reviewed Vital Signs: Yes Vital Signs: Vital Signs x48h Temp Pulse Resp BP BP Pulse Ox 09/06/21 11:00 73 23 104/46 L 97 09/06/21 10:00 81 20 103/56 L 97 09/06/21 09:00 83 19 106/43 L 97 09/06/21 08:00 83 19 106/43 L 97 09/06/21 07:00 74 17 106/68 98 09/06/21 06:14 20 106/68 98 09/06/21 06:00 74 17 87/59 L 98 09/06/21 05:00 62 16 86/56 L 99 09/06/21 03:58 37.0 C 69 23 91/57 L 99 Intake & Output: Intake & Output 09/03/21 09/04/21 09/05/21 09/06/21 23:59 23:59 23:59 23:59 Intake Total 6176.566 3358.1 560 Output Total 100 2967 1831 Balance 1250.967 312.1 -1271 - Objective General Appearance: positive: No acute distress, Alert Eyes Bilateral: positive: PERRL, EOMI ENT: positive: No signs of dehydration Neck: positive: No JVD, Trachea midline Respiratory: positive: No respiratory distress Skin: positive: Color nml, Warm Neurologic/Psychiatric: positive: Oriented x3 - Lab Results Fish Bones: 09/06/21 04:07 09/06/21 04:07 Other Labs: Lab Results x24hrs 09/06/21 09/06/21 09/06/21 Range/Units 04:07 04:07 04:07 WBC 14.7 H (4.8-10.8) x10^3/uL RBC 3.33 L (4.20-5.40) 10^6/uL Hgb 9.6 L (12.0-16.0) g/dL Hct 28.7 L (37.0-47.0) % MCV 86.2 (81.0-99.0) fL MCH 28.8 (27.0-31.0) pg MCHC 33.4 (32.0-36.0) g/dL RDW 15.0 (12.0-15.0) % Plt Count 182 (130-450) 10^3/uL MPV 9.9 (7.9-10.8) fL Neut # (Auto) 11.4 H (1.5-6.6) 10^3/uL Lymph # (Auto) 1.8 (1.5-3.5) 10^3/uL Crawford # (Auto) 1.2 H (0.0-1.0) 10^3/uL Eos # (Auto) 0.1 (0.0-0.7) 10^3/uL Baso # (Auto) 0.1 (0.0-0.1) 10^3/uL Absolute Nucleated RBC 0.00 x10^3/uL Nucleated RBC % 0.0 /100WBC Fibrinogen (220-496) mg/dL VBG pH 7.433 H (7.31-7.41) Ionized Calcium 1.07 L (1.15-1.33) mmol/L Sodium (135-145) mmol/L Potassium 4.0 (3.5-5.0) mmol/L Chloride (101-111) mmol/L Carbon Dioxide (21-32) mmol/L Anion Gap (6-13) BUN (6-20) mg/dL Creatinine (0.4-1.0) mg/dL Estimated GFR (MDRD) (>89) Glucose (70-100) mg/dL Calcium (8.5-10.3) mg/dL Phosphorus 3.2 (2.5-4.6) mg/dL Magnesium 1.7 (1.7-2.8) mg/dL Troponin I High Sens (2.3-14.8) ng/L Nasal Screen MRSA (PCR) (NEGATIVE) SARS-CoV-2 (PCR) Blood Type Antibody Screen Crossmatch IS Only 09/06/21 09/05/21 09/05/21 Range/Units 04:07 21:00 21:00 WBC (4.8-10.8) x10^3/uL RBC (4.20-5.40) 10^6/uL Hgb (12.0-16.0) g/dL Hct (37.0-47.0) % MCV (81.0-99.0) fL MCH (27.0-31.0) pg MCHC (32.0-36.0) g/dL RDW (12.0-15.0) % Plt Count (130-450) 10^3/uL MPV (7.9-10.8) fL Neut # (Auto) (1.5-6.6) 10^3/uL Lymph # (Auto) (1.5-3.5) 10^3/uL Crawford # (Auto) (0.0-1.0) 10^3/uL Eos # (Auto) (0.0-0.7) 10^3/uL Baso # (Auto) (0.0-0.1) 10^3/uL Absolute Nucleated RBC x10^3/uL Nucleated RBC % /100WBC Fibrinogen 416 (220-496) mg/dL VBG pH 7.478 H (7.31-7.41) Ionized Calcium 1.08 L YES (1.15-1.33) mmol/L Sodium (135-145) mmol/L Potassium (3.5-5.0) mmol/L Chloride (101-111) mmol/L Carbon Dioxide (21-32) mmol/L Anion Gap (6-13) BUN (6-20) mg/dL Creatinine (0.4-1.0) mg/dL Estimated GFR (MDRD) (>89) Glucose (70-100) mg/dL Calcium 8.0 L (8.5-10.3) mg/dL Phosphorus (2.5-4.6) mg/dL Magnesium (1.7-2.8) mg/dL Troponin I High Sens (2.3-14.8) ng/L Nasal Screen MRSA (PCR) (NEGATIVE) SARS-CoV-2 (PCR) Blood Type Antibody Screen Crossmatch IS Only 09/05/21 09/05/21 09/05/21 Range/Units 21:00 16:13 14:00 WBC 17.9 H (4.8-10.8) x10^3/uL RBC 3.52 L (4.20-5.40) 10^6/uL Hgb 10.3 L (12.0-16.0) g/dL Hct 29.7 L (37.0-47.0) % MCV 84.4 (81.0-99.0) fL MCH 29.3 (27.0-31.0) pg MCHC 34.7 (32.0-36.0) g/dL RDW 14.9 (12.0-15.0) % Plt Count 201 (130-450) 10^3/uL MPV 10.0 (7.9-10.8) fL Neut # (Auto) 14.5 H (1.5-6.6) 10^3/uL Lymph # (Auto) 1.9 (1.5-3.5) 10^3/uL Crawford # (Auto) 1.3 H (0.0-1.0) 10^3/uL Eos # (Auto) 0.0 (0.0-0.7) 10^3/uL Baso # (Auto) 0.1 (0.0-0.1) 10^3/uL Absolute Nucleated RBC 0.00 x10^3/uL Nucleated RBC % 0.0 /100WBC Fibrinogen (220-496) mg/dL VBG pH (7.31-7.41) Ionized Calcium (1.15-1.33) mmol/L Sodium 134 L (135-145) mmol/L Potassium 4.0 (3.5-5.0) mmol/L Chloride 104 (101-111) mmol/L Carbon Dioxide 20 L (21-32) mmol/L Anion Gap 10.0 (6-13) BUN 10 (6-20) mg/dL Creatinine 0.5 (0.4-1.0) mg/dL Estimated GFR (MDRD) 144 (>89) Glucose 110 H (70-100) mg/dL Calcium 8.0 L (8.5-10.3) mg/dL Phosphorus (2.5-4.6) mg/dL Magnesium (1.7-2.8) mg/dL Troponin I High Sens 4.4 (2.3-14.8) ng/L Nasal Screen MRSA (PCR) (NEGATIVE) SARS-CoV-2 (PCR) Blood Type Antibody Screen Crossmatch IS Only 09/05/21 09/05/21 09/05/21 Range/Units 14:00 14:00 14:00 WBC 20.0 H (4.8-10.8) x10^3/uL RBC 3.68 L (4.20-5.40) 10^6/uL Hgb 11.0 L (12.0-16.0) g/dL Hct 31.2 L (37.0-47.0) % MCV 84.8 (81.0-99.0) fL MCH 29.9 (27.0-31.0) pg MCHC 35.3 (32.0-36.0) g/dL RDW 14.6 (12.0-15.0) % Plt Count 190 (130-450) 10^3/uL MPV 9.9 (7.9-10.8) fL Neut # (Auto) 17.5 H (1.5-6.6) 10^3/uL Lymph # (Auto) 1.1 L (1.5-3.5) 10^3/uL Crawford # (Auto) 1.0 (0.0-1.0) 10^3/uL Eos # (Auto) 0.2 (0.0-0.7) 10^3/uL Baso # (Auto) 0.1 (0.0-0.1) 10^3/uL Absolute Nucleated RBC 0.00 x10^3/uL Nucleated RBC % 0.0 /100WBC Fibrinogen 377 (220-496) mg/dL VBG pH 7.449 H (7.31-7.41) Ionized Calcium 1.08 L (1.15-1.33) mmol/L Sodium (135-145) mmol/L Potassium (3.5-5.0) mmol/L Chloride (101-111) mmol/L Carbon Dioxide (21-32) mmol/L Anion Gap (6-13) BUN (6-20) mg/dL Creatinine (0.4-1.0) mg/dL Estimated GFR (MDRD) (>89) Glucose (70-100) mg/dL Calcium (8.5-10.3) mg/dL Phosphorus (2.5-4.6) mg/dL Magnesium (1.7-2.8) mg/dL Troponin I High Sens (2.3-14.8) ng/L Nasal Screen MRSA (PCR) (NEGATIVE) SARS-CoV-2 (PCR) Blood Type Antibody Screen Crossmatch IS Only 09/05/21 09/05/21 09/04/21 Range/Units 11:10 11:10 17:00 WBC (4.8-10.8) x10^3/uL RBC (4.20-5.40) 10^6/uL Hgb (12.0-16.0) g/dL Hct (37.0-47.0) % MCV (81.0-99.0) fL MCH (27.0-31.0) pg MCHC (32.0-36.0) g/dL RDW (12.0-15.0) % Plt Count (130-450) 10^3/uL MPV (7.9-10.8) fL Neut # (Auto) (1.5-6.6) 10^3/uL Lymph # (Auto) (1.5-3.5) 10^3/uL Crawford # (Auto) (0.0-1.0) 10^3/uL Eos # (Auto) (0.0-0.7) 10^3/uL Baso # (Auto) (0.0-0.1) 10^3/uL Absolute Nucleated RBC x10^3/uL Nucleated RBC % /100WBC Fibrinogen (220-496) mg/dL VBG pH (7.31-7.41) Ionized Calcium (1.15-1.33) mmol/L Sodium (135-145) mmol/L Potassium (3.5-5.0) mmol/L Chloride (101-111) mmol/L Carbon Dioxide (21-32) mmol/L Anion Gap (6-13) BUN (6-20) mg/dL Creatinine (0.4-1.0) mg/dL Estimated GFR (MDRD) (>89) Glucose (70-100) mg/dL Calcium (8.5-10.3) mg/dL Phosphorus (2.5-4.6) mg/dL Magnesium (1.7-2.8) mg/dL Troponin I High Sens (2.3-14.8) ng/L Nasal Screen MRSA (PCR) NEGATIVE (NEGATIVE) SARS-CoV-2 (PCR) NOT DETECTED Blood Type O POSITIVE Antibody Screen NEGATIVE Crossmatch IS Only See Detail ABX Reporting Has patient been on IV antibiotics over the past 48 hours?: Yes Assessment/Plan - Problem List (1) hemorrhage Impression: Conclusion/Plan: Patient is stable and awake and alert. H/H is stable and fibrinogen continues to increase. Bakri remains in place with decreasing output. Balloon will likely come out today. Dr. Ricks will drain Bakri - needs to be reduced in incremental volumes to avoid repeat hemorrhage. Vaginal packing in place: should be fixed to Barki catheter. If balloon falls out and packing is not removed, it will need to be extracted. Contact OB MD for extraction. Once balloon is removed, patient will likely move to the OB floor since she is stable. No signs of DIC and labs are improving so at this time we will hand off care back to the OB team. (2) Leukocytosis Conclusion/Plan: Patient's WBC has decreased to 14.7 from 20.0 yesterday. Patient is afebrile but edematous that is likely due to fluid resuscitation. She does not meet SIRS criteria so it is likley this leukocytosis is stress related in regards to being in a state. She was started on azithromycin 500mg PO and cefazolin while the Bakri is in place for infection prophylaxis. This prophylaxis may be stopped today by OB if they remove the balloon but that decision is ultimately up to them.
[2021-09-06] MEDS ORDERED: PRENATAL VITAMIN TABLET PO SCH (13:00)
--- NOTE | 2021-09-06 18:46 | PROVIDER PROGRESS NOTE ---
Subjective - Prog Note Date Prog Note Date: 09/06/21 Prog Note Time: 18:42 - Subjective Subjective: LATE ENTRY: Patient was seen several times over the course of the day. Has been improving and output form Bakri has diminished from 20 to 10 cc /4H. Bakri was de-infused in 4 increments of 40 cc each over the course of the day. Initial reduction in volume was at approximately 10 am. Second reduction at 13:00. Third reduction at about 17:15. At 16:30, patient coughed and the balloon was pushed into the vaginal vault. The remaining 40 cc was removed and the Bakri and the packing was removed completely. No increase in blood loss with removal of balloon. Patient was transferred back to L&D at about 14:00 after showing stability with partial reduction in Bakri volume. Pain is well managed. Afebrile. UOP excellent with Kerns in place. Tolerating po. has not been ambulaitng due to presence of Bakri. Objective - Vital Signs/Intake & Output Reviewed Vital Signs: Yes Vital Signs: Vital Signs x48h Temp Pulse Resp BP BP Pulse Ox 09/06/21 16:21 98.4 F 79 16 102/43 L 200 H 09/06/21 14:00 71 16 104/54 L 98 09/06/21 13:00 75 23 102/47 L 99 09/06/21 12:00 97.7 F 81 27 H 92/49 L 97 09/06/21 11:00 73 23 104/46 L 97 Intake & Output: Intake & Output 09/03/21 09/04/21 09/05/21 09/06/21 23:59 23:59 23:59 23:59 Intake Total 3143.194 9238.1 800 Output Total 100 2967 3036 Balance 1250.967 312.1 2236 - Objective General Appearance: positive: No acute distress Respiratory: positive: No respiratory distress, Breath sounds nml Cardiovascular: positive: Regular rate & rhythm Peripheral Pulses: 2+ Radial (R), 2+ Radial (L), 2+ Dorsalis pedis (R), 2+ Dorsalis pedis (L) Abdomen: positive: Non-tender, Other (Soft and ND. FF at 1+) Back: positive: Nml inspection Skin: positive: Pallor Extremities: positive: Non-tender, Pedal edema Neurologic/Psychiatric: positive: Oriented x3 Comments/Other: PELVIC: NEFG. No increase in blood flow with removal of Bakri and packing. - Lab Results Fish Bones: 09/06/21 04:07 09/06/21 04:07 Other Labs: Lab Results x24hrs 09/06/21 09/06/21 09/06/21 Range/Units 04:07 04:07 04:07 WBC 14.7 H (4.8-10.8) x10^3/uL RBC 3.33 L (4.20-5.40) 10^6/uL Hgb 9.6 L (12.0-16.0) g/dL Hct 28.7 L (37.0-47.0) % MCV 86.2 (81.0-99.0) fL MCH 28.8 (27.0-31.0) pg MCHC 33.4 (32.0-36.0) g/dL RDW 15.0 (12.0-15.0) % Plt Count 182 (130-450) 10^3/uL MPV 9.9 (7.9-10.8) fL Neut # (Auto) 11.4 H (1.5-6.6) 10^3/uL Lymph # (Auto) 1.8 (1.5-3.5) 10^3/uL Ransom # (Auto) 1.2 H (0.0-1.0) 10^3/uL Eos # (Auto) 0.1 (0.0-0.7) 10^3/uL Baso # (Auto) 0.1 (0.0-0.1) 10^3/uL Absolute Nucleated RBC 0.00 x10^3/uL Nucleated RBC % 0.0 /100WBC Fibrinogen (220-496) mg/dL VBG pH 7.433 H (7.31-7.41) Ionized Calcium 1.07 L (1.15-1.33) mmol/L Potassium 4.0 (3.5-5.0) mmol/L Calcium (8.5-10.3) mg/dL Phosphorus 3.2 (2.5-4.6) mg/dL Magnesium 1.7 (1.7-2.8) mg/dL Crossmatch IS Only 09/06/21 09/05/21 09/05/21 Range/Units 04:07 21:00 21:00 WBC (4.8-10.8) x10^3/uL RBC (4.20-5.40) 10^6/uL Hgb (12.0-16.0) g/dL Hct (37.0-47.0) % MCV (81.0-99.0) fL MCH (27.0-31.0) pg MCHC (32.0-36.0) g/dL RDW (12.0-15.0) % Plt Count (130-450) 10^3/uL MPV (7.9-10.8) fL Neut # (Auto) (1.5-6.6) 10^3/uL Lymph # (Auto) (1.5-3.5) 10^3/uL Ransom # (Auto) (0.0-1.0) 10^3/uL Eos # (Auto) (0.0-0.7) 10^3/uL Baso # (Auto) (0.0-0.1) 10^3/uL Absolute Nucleated RBC x10^3/uL Nucleated RBC % /100WBC Fibrinogen 416 (220-496) mg/dL VBG pH 7.478 H (7.31-7.41) Ionized Calcium 1.08 L YES (1.15-1.33) mmol/L Potassium (3.5-5.0) mmol/L Calcium 8.0 L (8.5-10.3) mg/dL Phosphorus (2.5-4.6) mg/dL Magnesium (1.7-2.8) mg/dL Crossmatch IS Only 09/05/21 09/04/21 Range/Units 21:00 17:00 WBC 17.9 H (4.8-10.8) x10^3/uL RBC 3.52 L (4.20-5.40) 10^6/uL Hgb 10.3 L (12.0-16.0) g/dL Hct 29.7 L (37.0-47.0) % MCV 84.4 (81.0-99.0) fL MCH 29.3 (27.0-31.0) pg MCHC 34.7 (32.0-36.0) g/dL RDW 14.9 (12.0-15.0) % Plt Count 201 (130-450) 10^3/uL MPV 10.0 (7.9-10.8) fL Neut # (Auto) 14.5 H (1.5-6.6) 10^3/uL Lymph # (Auto) 1.9 (1.5-3.5) 10^3/uL Ransom # (Auto) 1.3 H (0.0-1.0) 10^3/uL Eos # (Auto) 0.0 (0.0-0.7) 10^3/uL Baso # (Auto) 0.1 (0.0-0.1) 10^3/uL Absolute Nucleated RBC 0.00 x10^3/uL Nucleated RBC % 0.0 /100WBC Fibrinogen (220-496) mg/dL VBG pH (7.31-7.41) Ionized Calcium (1.15-1.33) mmol/L Potassium (3.5-5.0) mmol/L Calcium (8.5-10.3) mg/dL Phosphorus (2.5-4.6) mg/dL Magnesium (1.7-2.8) mg/dL Crossmatch IS Only See Detail Assessment/Plan - Problem List (1) hemorrhage Impression: PPD#1: PPH with BAKRI AND PACKING: -Bakri removed after incremental reduction in balloon volume -Ok to discontinue abx given removal of foreign bodies from uterine cavity -OK to DC Kerns and encourage ambulation. ANEMIA: H&H stable -ferric gluconate to aid in recovery ID: DC abx given removal of Bakri FEN: Received calcium gluconate this am. Ferric gluconate as above : DC Kerns PPX: Lovenox 40 mg SQ given massive transfusion and stabilization of blood loss. Anticipate DC home in am
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
[2021-09-06] MEDS ORDERED: FERRIC GLUCONATE 125 MG in SODIUM CHLORIDE 0.9% 100ML 100 ML IV ONE (19:30)
[2021-09-06] MEDS: ENOXAPARIN 40 MG/0.4 ML SYRINGE SUBQ SCH (19:44)
[2021-09-07] MEDS: ACETAMINOPHEN 500 MG TABLET PO SCH (05:32)
[2021-09-07] MEDS: IBUPROFEN 800 MG TABLET PO SCH ×2 (05:32→10:49)
[2021-09-07 05:59] LABS: CALCIUM, IONIZED 1.09 mmol/L (1.15-1.33); VBG PH 7.422 (7.31-7.41)
[2021-09-07 06:08] LABS: MAGNESIUM 1.9 mg/dL (1.7-2.8); PHOSPHORUS 3.5 mg/dL (2.5-4.6); POTASSIUM 4.3 mmol/L (3.5-5.0)
[2021-09-07 06:40] LABS: BASOPHILS # (AUTO) 0.1 10^3/uL (0.0-0.1); BASOPHILS % (AUTO) 0.7 %; EOSINOPHILS # (AUTO) 0.2 10^3/uL (0.0-0.7); EOSINOPHILS % (AUTO) 1.6 %; HCT - HEMATOCRIT 27.3 % (37.0-47.0); HGB - HEMOGLOBIN 8.9 g/dL (12.0-16.0); LYMPHOCYTES # (AUTO) 1.8 10^3/uL (1.5-3.5); LYMPHOCYTES % (AUTO) 17.7 %; MEAN CORPUSCULAR HEMOGLOBIN 28.8 pg (27.0-31.0); MEAN CORPUSCULAR HGB CONC 32.6 g/dL (32.0-36.0); MEAN CORPUSCULAR VOLUME 88.3 fL (81.0-99.0); MEAN PLATELET VOLUME 10.2 fL (7.9-10.8); MONOCYTES # (AUTO) 0.8 10^3/uL (0.0-1.0); MONOCYTES % (AUTO) 7.2 %; PLT - PLATELET COUNT 213 10^3/uL (130-450); RED BLOOD COUNT 3.09 10^6/uL (4.20-5.40); RED CELL DISTRIBUTION WIDTH 15.5 % (12.0-15.0); WHITE BLOOD COUNT 10.4 x10^3/uL (4.8-10.8)
[2021-09-07] MEDS: DOCUSATE SODIUM 100 MG CAPSULE PO SCH (08:46)
[2021-09-07] MEDS ORDERED: CYANOCOBALAMIN 1,000 MCG/ML VIAL IM ONE (10:51)
--- NOTE | 2021-09-07 10:53 | PROVIDER PROGRESS NOTE ---
Subjective - Prog Note Date Prog Note Date: 09/07/21 Prog Note Time: 10:51 - Subjective Subjective: Patient is doing well. She is up and ambulating, tolerating po, pain is well managed. Bleeding has been minimal. No fevers. Formula feeding with continued attempts at . Objective - Vital Signs/Intake & Output Reviewed Vital Signs: Yes Vital Signs: Vital Signs x48h Temp Pulse Resp BP Pulse Ox 09/07/21 08:55 97.5 F L 62 21 114/61 100 09/07/21 04:52 98.2 F 71 16 114/61 100 Intake & Output: Intake & Output 09/04/21 09/05/21 09/06/21 09/07/21 23:59 23:59 23:59 23:59 Intake Total 2194.259 3542.1 1600 800 Output Total 100 2967 4436 600 Balance 1250.967 312.1 -2836 200 - Objective General Appearance: positive: No acute distress Eyes Bilateral: positive: PERRL Respiratory: positive: No respiratory distress, Breath sounds nml Cardiovascular: positive: Regular rate & rhythm, Systolic murmur (slight holosystolic murmur) Back: positive: Nml inspection Skin: positive: Color nml, Warm Extremities: positive: Non-tender, No pedal edema Neurologic/Psychiatric: positive: Oriented x3 - Lab Results Fish Bones: 09/07/21 05:41 09/07/21 05:41 Other Labs: Lab Results x24hrs 09/07/21 09/07/21 09/07/21 Range/Units 05:41 05:41 05:41 WBC 10.4 (4.8-10.8) x10^3/uL RBC 3.09 L (4.20-5.40) 10^6/uL Hgb 8.9 L (12.0-16.0) g/dL Hct 27.3 L (37.0-47.0) % MCV 88.3 (81.0-99.0) fL MCH 28.8 (27.0-31.0) pg MCHC 32.6 (32.0-36.0) g/dL RDW 15.5 H (12.0-15.0) % Plt Count 213 (130-450) 10^3/uL MPV 10.2 (7.9-10.8) fL Neut # (Auto) 7.0 H (1.5-6.6) 10^3/uL Lymph # (Auto) 1.8 (1.5-3.5) 10^3/uL [place] # (Auto) 0.8 (0.0-1.0) 10^3/uL Eos # (Auto) 0.2 (0.0-0.7) 10^3/uL Baso # (Auto) 0.1 (0.0-0.1) 10^3/uL Absolute Nucleated RBC 0.00 x10^3/uL Nucleated RBC % 0.0 /100WBC VBG pH 7.422 H (7.31-7.41) Ionized Calcium 1.09 L (1.15-1.33) mmol/L Potassium 4.3 (3.5-5.0) mmol/L Phosphorus 3.5 (2.5-4.6) mg/dL Magnesium 1.9 (1.7-2.8) mg/dL Assessment/Plan - Problem List (1) hemorrhage Impression: PPD#2 s/p with PPH with MTP -Patient is doing well. No symptoms of anemia or infection -Bakri removed yesterday evening with normal lochia overnight -Has received Lovenox for VTE ppx. will administer second dose this pm -Will give additional dose of ferric gluconate and B12 prior to discharge. Anticipate DC home this afternoon. Discharge instructions given
--- NOTE | 2021-09-07 10:58 | Discharge Plan ---
Discharge Plan Problem Reviewed?: Yes Disposition: Home, Self Care Condition: Good Prescriptions: Acetaminophen [Acetaminophen Extra Strength] 1,000 mg PO Q8H PRN #60 tablet PRN Reason: Pain Docusate Sodium 100Mg Capsule [Colace 100Mg Capsule] 100 - 200 mg PO BID PRN #60 cap PRN Reason: Constipation Ferrous Gluconate 324 mg PO BID #60 tablet Ibuprofen [Motrin] 600 mg PO Q6H PRN #60 tab PRN Reason: Pain Ascorbic Acid [Vitamin C] 250 mg PO BID 2 Days #60 tablet Diet: Regular Activity Restrictions: Additional Comments (Nothing in the vagina for 6 weeks: No intercourse, tampons, douching Call for: -Fever greater than 100.5 - Pain that does not improve with pain medication -Heavy bleeding in which you are soaking a pad an hour for 2 hours in a row -Pain in the legs (especially one sided), swelling i) Shower Restrictions: Yes (no tub baths or hot tubs for 4 weeks) Additional Instructions or Follow Up instructions: HOME MEDICATIONS: Ibuprofen 600 mg by mouth every 6 hours as needed for pain Acetaminophen 500-1000 mg by mouth every 8 hours as needed for pain Docusate 100-200 mg by mouth twice a day as needed for constipation Iron sulfate 325 mg by mouth twice a day OR iron gluconate 324 mg by mouth twice a day (either one is okay) Vitamin C 250 mg by mouth twice daily to be taken with iron No Smoking: If you smoke, Please STOP! Call for help.
[2021-09-07] MEDS ORDERED: FERRIC GLUCONATE 125 MG in SODIUM CHLORIDE 0.9% 100ML 100 ML IV ONE (11:30)
--- NOTE | 2021-09-07 11:55 | PROVIDER PROGRESS NOTE ---
Subjective - Subjective Subjective: Phoned by RN 09/05/2021 @ 0604 for increased vaginal bleeding . Second bag of pitocin initiated and 800mcg BC misoprostol ordered now. Repeat call at 0611 reporting her bleeding continues to be brisk intermittently. Methergine and TXA ordered and presented to the bedside at 0625. Upon evaluation uterine fundus firm however large amount of clot expelled with fundal massage and EBL reaches 1400 total. scalloper physician notified and presence requested. Ordered to call in surgical team for emergency D&C. Pt rolled immediately to operating room. Care handed to physician at bedside. (see physician note for care, plan, and continued management) Objective - Vital Signs/Intake & Output Vital Signs: Vital Signs x48h Temp Pulse Resp BP Pulse Ox 09/07/21 08:55 36.4 C L 62 21 114/61 100 09/07/21 04:52 36.8 C 71 16 114/61 100 Intake & Output: Intake & Output 09/04/21 09/05/21 09/06/21 09/07/21 23:59 23:59 23:59 23:59 Intake Total 8892.711 6002.1 1600 800 Output Total 100 2967 4436 600 Balance 1250.967 312.1 -2836 200 - Lab Results Fish Bones: 09/07/21 05:41 09/07/21 05:41 Other Labs: Lab Results x24hrs 09/07/21 09/07/21 09/07/21 Range/Units 05:41 05:41 05:41 WBC 10.4 (4.8-10.8) x10^3/uL RBC 3.09 L (4.20-5.40) 10^6/uL Hgb 8.9 L (12.0-16.0) g/dL Hct 27.3 L (37.0-47.0) % MCV 88.3 (81.0-99.0) fL MCH 28.8 (27.0-31.0) pg MCHC 32.6 (32.0-36.0) g/dL RDW 15.5 H (12.0-15.0) % Plt Count 213 (130-450) 10^3/uL MPV 10.2 (7.9-10.8) fL Neut # (Auto) 7.0 H (1.5-6.6) 10^3/uL Lymph # (Auto) 1.8 (1.5-3.5) 10^3/uL [place] # (Auto) 0.8 (0.0-1.0) 10^3/uL Eos # (Auto) 0.2 (0.0-0.7) 10^3/uL Baso # (Auto) 0.1 (0.0-0.1) 10^3/uL Absolute Nucleated RBC 0.00 x10^3/uL Nucleated RBC % 0.0 /100WBC VBG pH 7.422 H (7.31-7.41) Ionized Calcium 1.09 L (1.15-1.33) mmol/L Potassium 4.3 (3.5-5.0) mmol/L Phosphorus 3.5 (2.5-4.6) mg/dL Magnesium 1.9 (1.7-2.8) mg/dL
[2021-09-07 16:46] VITALS: BP 129/75
[2021-09-07] MEDS: ENOXAPARIN 40 MG/0.4 ML SYRINGE SUBQ SCH (17:26)
--- NOTE | 2021-09-13 03:40 | Labor Flowsheet ---
Labor Flowsheet Datetime Report Generated by CPN: 09/13/2021 03:40 Datetime: 09/05/2021 06:30 VITAL SIGNS NBP Sys/Marielle/Mean (mmHg): 127 : 71 : 82 Pulse: 85 Datetime: 09/05/2021 06:29 SpO2 (%): 100 Datetime: 09/05/2021 05:26 Respirations: 17 Datetime: 09/05/2021 05:00 PAIN Pain Scale: 0 Datetime: 09/05/2021 04:46 Vital Sign Comments: pt's arm bent holding , BP retaken Datetime: 09/05/2021 04:30 Stage of : Recovery Datetime: 09/05/2021 04:17 STAGE 2 Pushing: Coached on Pushing Pushing Position: Pushing with Contractions; Pushing Lithotomy Pushing Progress: Descent with Pushing Datetime: 09/05/2021 04:15 LaborFlag: Labor Datetime: 09/05/2021 04:14 VAGINAL EXAM Dilatation (cm): 10.0 Effacement (%): 100 Station: 2 Exam by: A Sofía CNM Datetime: 09/05/2021 04:11 I/O Interventions: Kerns Discontinued Datetime: 09/05/2021 04:09 COMMUNICATION Communication: Provider at Bedside Datetime: 09/05/2021 04:00 Temperature (C): 36.9 UTERINE ACTIVITY Monitor Mode: External Frequency (min): 2-3.5 Quality: Strong Duration (sec): 40-80 Pattern: Normal: <= 5 Contractions in 10 Minutes Resting Tone (Palpate): Relaxed ASSESSMENT A Monitor Mode: Telemetry FHR Baseline Rate : 125 Variability: Moderate 6-25 bpm Accelerations: 15X15 Decelerations: None Category: Category I Datetime: 09/05/2021 03:56 Monitor Interventions for UA: Cassandra Adjusted Monitor Interventions for FHR: Ultrasound Adjusted Datetime: 09/05/2021 03:55 Patient Position/Activity: Right Lateral Datetime: 09/05/2021 03:27 Pain Presence: None/Denies Pain Assessment Comments: denies needs, denies feeling ctxs or pressure or any urge to push Datetime: 09/05/2021 03:18 Provider Notified (Name): A Sofía CNM Communication Comments: CNM updated on SVE Datetime: 09/05/2021 03:13 TEACHING Instructional Method: Verbal; Patient Instructed; Family/Support Person Instructed; Verbalized Unde rstanding Plan of Care: Vaginal Delivery Labor/Induction: Pushing Methods Pain Management: Comfort Measures Datetime: 09/05/2021 03:09 Hygiene: Rebecca Care; Underpad Changed Datetime: 09/05/2021 03:07 Vaginal Bleeding: None Vaginal Exam Comments: anterior lip Datetime: 09/05/2021 02:50 Comments: audible movement Datetime: 09/05/2021 02:46 Pain Coping: Sleeping MEDICATIONS Pitocin (milliunits): Increased to @ 3 Datetime: 09/05/2021 02:16 Anesthesia Level Check: T8- Ribs Datetime: 09/05/2021 01:06 Unit Routine: Call Clements; Safety/Fall Risk Prevention Datetime: 09/05/2021 01:03 Nausea/Vomiting: Denies Datetime: 09/05/2021 00:54 Magnesium/Antihypertensives: Ephedrine IV (mg) @ 5 Datetime: 09/05/2021 00:49 PATIENT CARE IV/Blood Work: IV Bolus Started Datetime: 09/05/2021 00:44 Pain Type: Pressure Pain Location: Abdomen Pain Relief Measures: Comfort Measures Patient Care Comments: pt restless, pulling at sheets and frequent repositioning Datetime: 09/05/2021 00:00 Contraction Comments: toco not tracing properly with pt in this position, will continue to adjust Datetime: 09/04/2021 23:39 Notification Reason: Status Update; Status; Labor Status; Uterine Activity; Pain Datetime: 09/04/2021 23:30 MATERNAL ASSESSMENT Level of Consciousness: Alert Datetime: 09/04/2021 23:24 Antiemetics/Antacids: Zofran (mg) @ 4 Datetime: 09/04/2021 23:22 Cervix, Consistency: Soft Cervix, Position: Midposition Datetime: 09/04/2021 23:20 Medication Comments: pt declining zofran Datetime: 09/04/2021 23:12 Maternal Comments: pt reports return of nausea, dry heaving Datetime: 09/04/2021 22:51 Epidural Procedure Other: Pump Started Datetime: 09/04/2021 22:45 Epidural Procedure: Loading Dose Datetime: 09/04/2021 22:08 Comfort Measures: Breathing/Relaxation Datetime: 09/04/2021 20:44 Pitocin Checklist: At Least 1 Acceleration of 15 bpm x 15 Seconds in 30 Minutes or Adequate Variabi lity; No More than 1 Late Deceleration Occurred in Past 30 Minutes; No More than 2 Variable Decelerat ions > 60 Seconds in Duration and decreasing >60 bpm in 30 minutes; No More than 5 Uterine Contractio ns in 10 Minutes for any 20 Minute Interval; Uterus Palpates Soft between Contractions Datetime: 09/04/2021 19:14 Teaching Comments: educated on tub safety and keeping IV site dry, verbalizes understanding Datetime: 09/04/2021 19:04 DTR's/Clonus: DTRs 2+; No Clonus Headache: Denies Breath Sounds, Left: Clear and Equal Breath Sounds, Right: Clear and Equal RUQ Epigastric Pain: Denies ANESTHESIA Anesthesia Plans: Uncertain Datetime: 09/04/2021 18:19 Membrane Status: Ruptured Membranes Rupture Method: Artificial Amniotic Fluid Color: Clear Amniotic Fluid Amount: Scant Amniotic Fluid Odor: Normal Datetime: 09/04/2021 18:10 Provider Reviewed Strip: Yes Strip Reviewed by: Zara Gore CNM
== END 2021-09-07 17:50 | disposition home or self-care (01) | DRG 768 ==
LOC: WFO 16:11 → FBP 16:53 → WFO 16:57 → FBP 16:58 → ICU 09-05 08:13 → FBP 09-06 14:11
PROVIDERS: ADMIT Nurse Practitioner Obstetrics & Gynecology; ATTEND Obstetrics & Gynecology
PROC: 10907ZC Drainage of Amniotic Fluid, Therapeutic from Products of Conception, Via Natural or Artificial Opening (ICD-10-PCS; 2021-09-04)
PROC: 0W3R7ZZ Control Bleeding in Genitourinary Tract, Via Natural or Artificial Opening (ICD-10-PCS; 2021-09-05)
PROC: 10D17Z9 Manual Extraction of Products of Conception, Retained, Via Natural or Artificial Opening (ICD-10-PCS; 2021-09-05)
PROC: 30233K1 Transfusion of Nonautologous Frozen Plasma into Peripheral Vein, Percutaneous Approach (ICD-10-PCS; 2021-09-05)
PROC: 30233N1 Transfusion of Nonautologous Red Blood Cells into Peripheral Vein, Percutaneous Approach (ICD-10-PCS; 2021-09-05)
PROC: 30233R1 Transfusion of Nonautologous Platelets into Peripheral Vein, Percutaneous Approach (ICD-10-PCS; 2021-09-05)
PROC: 10E0XZZ Delivery of Products of Conception, External Approach (ICD-10-PCS; principal; 2021-09-05 06:30)
DX: O72.2 Delayed and secondary postpartum hemorrhage (principal); Z37.0 Single live birth; D62 Acute posthemorrhagic anemia; O9A.5 Psychological abuse complicating pregnancy, childbirth and the puerperium; Y07.03 Male partner, perpetrator of maltreatment and neglect; Z3A.40 40 weeks gestation of pregnancy; O90.81 Anemia of the puerperium
CPT/HCPCS: 36415; 80048; 82310; 82330; 83735; 84100; 84132; 84484; 85025; 85384; 85610; 86850; 86900; 86901; 86920; 87150; 87635; A9270; J1650; J2210; J2916; J7040; J7120; P9016; P9017; P9037; P9040

== ENCOUNTER 2023-07-15 18:08 | Outpatient (CLI) | payer OTHER, MEDICAID ==
[2023-07-15 21:13] LABS: BASOPHILS % (AUTO) 0.4 %; EOSINOPHILS # (AUTO) 0.1 10^3/uL (0.0-0.7); EOSINOPHILS % (AUTO) 1.8 %; HGB - HEMOGLOBIN 13.7 g/dL (12.0-16.0); LYMPHOCYTES # (AUTO) 2.2 10^3/uL (1.5-3.5); LYMPHOCYTES % (AUTO) 29.6 %; MEAN CORPUSCULAR HGB CONC 33.4 g/dL (32.0-36.0); MEAN CORPUSCULAR VOLUME 89.9 fL (81.0-99.0); MEAN PLATELET VOLUME 9.9 fL (7.9-10.8); MONOCYTES # (AUTO) 0.4 10^3/uL (0.0-1.0); NEUTROPHILS # (AUTO) 4.6 10^3/uL (1.5-6.6); NEUTROPHILS % (AUTO) 61.9 %; PLT - PLATELET COUNT 286 10^3/uL (130-450); RED BLOOD COUNT 4.56 10^6/uL (4.20-5.40); RED CELL DISTRIBUTION WIDTH 12.5 % (12.0-15.0); WHITE BLOOD COUNT 7.4 x10^3/uL (4.8-10.8)
[2023-07-15 21:22] LABS: ALBUMIN 4.6 g/dL (3.2-5.5); ALBUMIN/GLOBULIN RATIO 1.8 (1.0-2.2); ALKALINE PHOSPHATASE 86 IU/L (42-121); ALT ALANINE AMINOTRANSFERASE 66 IU/L (10-60); AST ASPARTATE AMINOTRANSFERASE 35 IU/L (10-42); BILIRUBIN,TOTAL 0.5 mg/dL (0.2-1.0); BUN - BLOOD UREA NITROGEN 20 mg/dL (6-20); CALCIUM 9.8 mg/dL (8.5-10.3); CARBON DIOXIDE - CO2 24 mmol/L (21-32); CHLORIDE 108 mmol/L (101-111); CHOL/HDL RATIO 3.7 (<4.4); CHOLESTEROL 217 mg/dL; CREATININE 0.7 mg/dL (0.6-1.3); GFR - MDRD 96 (>89); GLUCOSE 91 mg/dL (74-104); HDL CHOLESTEROL 59 mg/dL; LDL CHOLESTEROL,CALCULATED 127 mg/dL; LDL/HDL RATIO 2.2 (<4.4); POTASSIUM 4.1 mmol/L (3.5-4.5); SODIUM 139 mmol/L (135-145); TOTAL PROTEIN 7.2 g/dL (6.4-8.9); TRIGLYCERIDES 154 mg/dL (48-352); VLDL CHOLESTEROL 31 mg/dL
[2023-07-15 21:39] LABS: THYROID STIMULATING HORMONE 2.37 uIU/mL (0.34-5.60)
== END 2023-07-15 18:09 | disposition home or self-care (01) ==
LOC: LAB.N 18:08
PROVIDERS: ATTEND Nurse Practitioner
DX: R53.83 Other fatigue (principal); Z13.220 Encounter for screening for lipoid disorders
CPT/HCPCS: 36415; 80053; 80061; 83721; 84443; 85025

== ENCOUNTER 2023-08-19 10:21 | Outpatient (CLI) | payer OTHER, MEDICAID ==
--- NOTE | 2023-08-19 11:46 | Ultrasound Report ---
PROCEDURE: Abdomen Limited INDICATIONS: ELEVATED TRANSAMINASES TECHNIQUE: Real-time focused scanning was performed of the abdomen, with image documentation. COMPARISONS: None. FINDINGS: Liver: The liver is echogenic and mildly enlarged consistent with hepatic steatosis. No intrahepatic biliary ductal dilatation. No hepatic mass. Gallbladder: Unremarkable. Biliary ducts: Intrahepatic bile ducts are non-dilated. Extrahepatic bile duct caliber measures 3.2 mm. Normal is 6-7 mm or less in diameter, or 10 mm or less post-cholecystectomy. Pancreas: Visualized portions of the pancreas are sonographically normal. The pancreatic tail is n ot well seen. Right kidney: Normal in size and echotexture. Right kidney measures cm long. No hydronephrosis or ne phrolithiasis. No solid masses. No complex renal cystic lesions which require follow-up. Aorta: Visualized aorta is normal in caliber at less than 3 cm. IVC: Intrahepatic inferior vena cava is patent. Miscellaneous: No free abdominal fluid. IMPRESSION: 1. Hepatic steatosis. 2. No acute abnormality. Reviewed by: Boyd Oswald on 08/19/2023 11:45 AM [facility] Approved by: Boyd Oswald on 08/19/2023 11:45 AM [facility] Station ID: [id number]
== END 2023-08-19 10:22 | disposition home or self-care (01) ==
LOC: DI 10:21
PROVIDERS: ATTEND Nurse Practitioner
DX: K76.0 Fatty (change of) liver, not elsewhere classified (principal)